=== PATIENT | male | born 1980 | race Caucasian/White ===

== ENCOUNTER 2022-12-23 14:52 | Outpatient (OUT) | payer OTHER, SELFPAY ==
--- NOTE | 2022-12-23 | XR_ITS ---
The [address] [address] Patient Name: RADHA WINSTON MRN: [id number] date: 1980 Sex: M Assigned Patient Location: Current Patient Location: Accession/Order Number: [id number] Exam Date: 12/23/2022 15:55 Report Date: 12/24/2022 07:37 At the request of: SAMUEL SHABAZZ Procedure: XR foot LT min 3V PROCEDURE: XR foot LT min 3V HISTORY: LEFT FOOT PAIN ; left foot wound COMPARISON: XR foot left 12/11/2021 FINDINGS: BONES:Prior surgical resection of distal end of first proximal phalanx, partial amputation of second and third toes, and resection of the distal half of the fourth and fifth metatarsals with bones of the phalanges remaining. Nondisplaced fracture across base of third metatarsal. SOFT TISSUES:No visible soft tissue swelling. EFFUSION:None visible. OTHER: Negative. XR/XR foot LT min 3V IMPRESSION: 1. Stable surgical changes. 2. Nonhealing versus incomplete osseous healing of base of third metatarsal fracture. Normal alignment is maintained. Electronically authenticated by: ADRI TOBIN Date: 12/24/2022 07:37
== END 2022-12-23 14:53 | disposition home or self-care (01) ==
LOC: WC 14:53
PROVIDERS: PCP Physician Assistant; Visit Provider Physician Assistant
DX: M79.672 Pain in left foot (principal); E11.621 Type 2 diabetes mellitus with foot ulcer; L97.421 Non-pressure chronic ulcer of left heel and midfoot limited to breakdown of skin; L97.521 Non-pressure chronic ulcer of other part of left foot limited to breakdown of skin
CPT/HCPCS: 11043; 11044; 73630; G0463

== ENCOUNTER 2022-12-23 16:47 | Outpatient (REF) | payer OTHER, SELFPAY | END 2022-12-23 16:48 | disposition home or self-care (01) | LOC: LAB 16:47 | PROVIDERS: PCP Physician Assistant; Visit Provider Physician Assistant | DX: S91.105A Unspecified open wound of left lesser toe(s) without damage to nail, initial encounter (principal) | CPT/HCPCS: 73630; 87070; 87101; 87116; 87150; 87186; 87205; 87206 ==

== ENCOUNTER 2022-12-25 14:52 | Outpatient (OUT) | payer OTHER, SELFPAY | END 2022-12-25 14:53 | disposition home or self-care (01) | LOC: WC 14:52 | PROVIDERS: PCP Physician Assistant; Visit Provider Podiatrist Foot & Ankle Surgery | DX: E11.621 Type 2 diabetes mellitus with foot ulcer (principal); L97.521 Non-pressure chronic ulcer of other part of left foot limited to breakdown of skin | CPT/HCPCS: G0463 ==

== ENCOUNTER 2023-01-03 14:15 | Outpatient (OUT) | payer OTHER, SELFPAY ==
--- NOTE | 2023-01-03 14:24 | ECG_ITS ---
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
--- NOTE | 2023-01-03 14:48 | XR_ITS ---
The [address] [address] Patient Name: RADHA WINSTON MRN: [id number] date: 1980 Sex: M Assigned Patient Location: [facility] Current Patient Location: [facility] Accession/Order Number: [id number] Exam Date: 01/03/2023 15:15 Report Date: 01/03/2023 15:34 At the request of: NIR SPENCER Procedure: XR chest 2V EXAM: XR chest 2V HISTORY: Preop. COMPARISON: 06/07/2018. TECHNIQUE: PA and lateral views of the chest performed. FINDINGS: The trachea is normal. The heart size is normal. The mediastinal silhouette is unremarkable. There may be calcified lymph nodes at the left hilum. The lung casas are clear. There is no pneumothorax. There is no acute osseous abnormality. There is slight dextroscoliosis of the thoracic spine. XR/XR chest 2V IMPRESSION: There is no acute cardiopulmonary process. Electronically authenticated by: NIR SERRANO Date: 01/03/2023 15:34
[2023-01-03 15:27] LABS: Basophils Absolute Auto 0.1 10^3/uL (0.0-0.1); Basophils Percent Auto 0.5 % (0.2-2.0); Eosinophils Absolute Auto 0.3 10^3/uL (0.0-0.7); Eosinophils Percent Auto 2.4 % (0.9-7.0); Hematocrit 30.9 % (42.0-54.0); Hemoglobin 10.4 g/dL (14.0-18.0); Immature Granulocytes Abs Auto 0.04 10^3/uL (0.00-0.03); Immature Granulocytes Pct Auto 0.3 % (0.0-0.5); Lymphocytes Absolute Auto 2.1 10^3/uL (1.2-3.8); Lymphocytes Percent Auto 17.7 % (20.5-60.0); Mean Corpuscular HGB Conc 33.7 g/dL (29.9-35.2); Mean Platelet Volume 9.1 fL (9.5-13.5); Monocytes Absolute Auto 0.7 10^3/uL (0.3-0.8); Monocytes Percent Auto 5.6 % (1.7-12.0); Neutrophils Absolute Auto 8.7 10^3/uL (1.4-6.5); Neutrophils Percent Auto 73.5 % (43.0-75.0); Platelet Count 218 10^3/uL (150-450); Red Blood Count 3.47 10^6/uL (4.70-6.10); Red Cell Distribution Width 12.5 % (11.0-15.0); White Blood Count 11.9 10^3/uL (4.0-11.0)
[2023-01-03 15:31] LABS: Anion Gap 14.1; BUN Creatinine Ratio 10.3; Calcium 8.9 mg/dL (8.5-10.1); Carbon Dioxide 27.1 mmol/L (21.0-32.0); Chloride 97 mmol/L (98-107); Estimated GFR (African America 10 (>=60); Estimated GFR (Non-African Ame 8 (>=60); Glucose 133 mg/dL (74-106); Potassium 4.2 mmol/L (3.5-5.1); Sodium 134 mmol/L (136-145)
[2023-01-03 15:42] LABS: INR 1.05; Prothrombin Time 11.1 sec (9.0-11.6)
[2023-01-04 09:24] LABS: Partial Thromboplastin Time 42.2 sec (22.3-36.2)
== END 2023-01-03 14:16 | disposition home or self-care (01) ==
LOC: PST 14:16
PROVIDERS: PCP Nurse Practitioner; Visit Provider Podiatrist Foot & Ankle Surgery
DX: Z01.810 Encounter for preprocedural cardiovascular examination (principal); Z01.812 Encounter for preprocedural laboratory examination; M86.672 Other chronic osteomyelitis, left ankle and foot; L97.526 Non-pressure chronic ulcer of other part of left foot with bone involvement without evidence of necrosis; E11.69 Type 2 diabetes mellitus with other specified complication
CPT/HCPCS: 36415; 71046; 80048; 85025; 85610; 85730; 93005

== ENCOUNTER 2023-01-13 06:22 | Day surgery (SDC) | payer OTHER, SELFPAY ==
[2023-01-03 14:55] VITALS: BP 153/86; PULSE 87; RESP 20; TEMP 36.4; O2SAT 97; BMI 32.3
[2023-01-13] VITALS (12 sets, daily range): BP systolic 71–131; BP diastolic 33–99; PULSE 66–90; RESP 10–24; TEMP 36.2–36.3; O2SAT 81–100; BMI 32.0
[2023-01-13] MEDS: 0.9 % SODIUM CHLORIDE 1,000 ML 50 ML IV (07:03)
[2023-01-13 07:44] LABS: Potassium 3.8 mmol/L (3.5-5.1)
[2023-01-13] MEDS: CLINDAMYCIN PHOSPHATE/D5W 900 MG/50 ML PIGGYBACK 100 MG IV (07:56)
[2023-01-13] MEDS: VANCOMYCIN HCL 1,000 MG VIAL 1000 MG TOPICAL (09:08)
[2023-01-13] MEDS: BUPIVACAINE HCL 0.5% PF 50 MG/10 ML VIAL 20 ML INJ (09:09)
--- NOTE | 2023-01-13 09:47 | XR_ITS ---
The [address] [address] Patient Name: RADHA WINSTON MRN: [id number] date: 1980 Sex: M Assigned Patient Location: [facility] Current Patient Location: [facility] Accession/Order Number: [id number] Exam Date: 01/13/2023 10:15 Report Date: 01/13/2023 15:49 At the request of: SUSANNAH AGUILAR Procedure: XR foot LT min 3V STUDY: XR foot LT min 3V, [id number] HISTORY: Postop x-ray PACU COMPARISON: None FINDINGS: Status post mid metatarsal foot amputation. The amputation margins are well defined. No dislocation or unintentional acute fracture. XR/XR foot LT min 3V IMPRESSION: Expected appearance status post mid metatarsal foot amputation. Electronically authenticated by: SHAHANA REED Date: 01/13/2023 15:49
--- NOTE | 2023-01-13 09:58 | PC.NURSE ---
ANETHESIA INSERTED IV IN RIGHT HAND BACK IN SURGERY
[2023-01-13 10:06] LABS: Glucometer 182 mg/dL (74-106)
--- NOTE | 2023-01-13 11:53 | PM.ORONB ---
Brief Operative Note Date of procedure: 01/13/23 Pre-op diagnosis: left foot osteomyelitis, diabetic foot ulceration and equinus Post-op diagnosis: same as pre-op Procedure: PROCEDURES PERFORMED: left transmetatarsal amputation, percutaneous tendo Achilles lengthening and application of short leg splint INTRAOPERATIVE FINDINGS: bone of the 5th metatarsal shaft was relatively soft compared to the other four metatarsals but was of normal color. all questionable tissue including ulcerations were excised. All remaining tissue appeared healthy. No purulence or evidence of acute infection. Ankle joint dorsiflexion was to neutral but not past prior to Achilles lengthening PROCEDURES IN DETAIL: Patient was identified in pre op and consent was reviewed. Correct side and site were identified and marked. Pre-op antibiotics were started. Patient was brought to OR suite and place on table in a supine position. General anesthesia was administered. Tourniquet applied. Operative extremity was prepped and draped in usual sterile fashion. Formal time-out was performed and the foot/ankle were exsanguinated and tourniquet inflated. A fishmouth incision was placed over the distal foot. Sharp dissection down to bone was performed. An elevator was used to raised full-thickness flap dorsally. Then a sagittal saw was used to perform osteotomies of each metatarsal taking care to preserve metatarsal parabola and avoid any bony prominences. Then with a comminution sharp and blunt dissection the distal forefoot was amputated and passed back table for specimen. Surgical site was irrigated with 3 L normal saline. 1 g of vancomycin powder was placed into the surgical site prior to closure. The incision was closed in one layer. The tourniquet was deflated with a prompt hyperemic response. Ankle joint dorsiflexion was to neutral but not past on the table therefore decision was made to perform tendo Achilles lengthening. A standard triple hemisection of the Achilles tendon was performed through three separate stab incisions. Ankle joint dorsiflexion was ten degrees past neutral. A dry sterile dressing consisting of Xeroform on the incisions followed by 4 x 4 gauze, ABDs, and Kerlix were applied. Multiple layers of cast padding were then applied to ensure all bony prominences were well-padded. A plaster posterior splint was then applied which was held in place by Placido wraps. Patient tolerated the procedure and anesthesia well and was transported to the recovery room with vital signs stable. 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 He most recently has had left recurrent and recalcitrant diabetic forefoot ulcers which have not healed with local wound care. He had a similar issue on his contralateral foot and has done very well with transmetatarsal amputation. At his last visit she inquired about doing similar amputation on his left. I reviewed all potential risks and benefits and patient wished to proceed with left transmetatarsal amputation and tendo Achilles lengthening
== END 2023-01-13 10:55 | disposition home or self-care (01) ==
PROVIDERS: Anesthesiology Pain Medicine; PCP Nurse Practitioner; Visit Provider Podiatrist Foot & Ankle Surgery
PROC: (CPT 1470; principal; 2023-01-13 07:30)
DX: E11.69 Type 2 diabetes mellitus with other specified complication (principal); M86.672 Other chronic osteomyelitis, left ankle and foot; E11.621 Type 2 diabetes mellitus with foot ulcer; L97.526 Non-pressure chronic ulcer of other part of left foot with bone involvement without evidence of necrosis; Z79.4 Long term (current) use of insulin; Z79.82 Long term (current) use of aspirin; M67.02 Short Achilles tendon (acquired), left ankle; E78.5 Hyperlipidemia, unspecified; E11.40 Type 2 diabetes mellitus with diabetic neuropathy, unspecified; E66.9 Obesity, unspecified; Z68.32 Body mass index [BMI] 32.0-32.9, adult; L97.521 Non-pressure chronic ulcer of other part of left foot limited to breakdown of skin; L97.421 Non-pressure chronic ulcer of left heel and midfoot limited to breakdown of skin; N18.5 Chronic kidney disease, stage 5; E11.22 Type 2 diabetes mellitus with diabetic chronic kidney disease; I12.9 Hypertensive chronic kidney disease with stage 1 through stage 4 chronic kidney disease, or unspecified chronic kidney disease; I12.0 Hypertensive chronic kidney disease with stage 5 chronic kidney disease or end stage renal disease; Z99.2 Dependence on renal dialysis
CPT/HCPCS: 27685; 28805; 36415; 73630; 82948; 84132; 88305; J2704; J3370

== ENCOUNTER 2023-01-16 13:53 | Outpatient (OUT) | payer OTHER, SELFPAY | END 2023-01-16 13:54 | disposition home or self-care (01) | LOC: WC 13:53 | PROVIDERS: PCP Nurse Practitioner; Visit Provider Physician Assistant | DX: T87.89 Other complications of amputation stump (principal) | CPT/HCPCS: 29445 ==

== ENCOUNTER 2023-01-23 15:01 | Outpatient (OUT) | payer OTHER, SELFPAY | END 2023-01-23 15:02 | disposition home or self-care (01) | LOC: WC 15:01 | PROVIDERS: PCP Nurse Practitioner; Visit Provider Podiatrist Foot & Ankle Surgery | DX: T87.89 Other complications of amputation stump (principal) | CPT/HCPCS: G0463 ==

== ENCOUNTER 2023-01-23 16:11 | Outpatient (OUT) | payer OTHER, SELFPAY ==
[2023-01-23 16:43] LABS: Basophils Absolute Auto 0.1 10^3/uL (0.0-0.1); Basophils Percent Auto 0.6 % (0.2-2.0); Eosinophils Absolute Auto 0.3 10^3/uL (0.0-0.7); Eosinophils Percent Auto 2.5 % (0.9-7.0); Hematocrit 27.2 % (42.0-54.0); Immature Granulocytes Abs Auto 0.06 10^3/uL (0.00-0.03); Immature Granulocytes Pct Auto 0.5 % (0.0-0.5); Lymphocytes Absolute Auto 2.5 10^3/uL (1.2-3.8); Lymphocytes Percent Auto 21.7 % (20.5-60.0); Mean Corpuscular HGB Conc 33.1 g/dL (29.9-35.2); Mean Corpuscular Hemoglobin 30.5 pg (25.9-34.0); Mean Corpuscular Volume 92.2 fL (80.0-94.0); Monocytes Absolute Auto 0.7 10^3/uL (0.3-0.8); Neutrophils Absolute Auto 7.8 10^3/uL (1.4-6.5); Neutrophils Percent Auto 68.7 % (43.0-75.0); Platelet Count 245 10^3/uL (150-450); Red Blood Count 2.95 10^6/uL (4.70-6.10); Red Cell Distribution Width 12.4 % (11.0-15.0); White Blood Count 11.4 10^3/uL (4.0-11.0)
[2023-01-23 17:28] LABS: Anion Gap 14.2; BUN Creatinine Ratio 9.5; Calcium 9.1 mg/dL (8.5-10.1); Carbon Dioxide 24.8 mmol/L (21.0-32.0); Chloride 100 mmol/L (98-107); Estimated GFR (African America 10 (>=60); Estimated GFR (Non-African Ame 8 (>=60); Glucose 144 mg/dL (74-106); Sodium 135 mmol/L (136-145)
== END 2023-01-23 16:12 | disposition home or self-care (01) ==
LOC: LAB 16:13
PROVIDERS: PCP Nurse Practitioner; Visit Provider Podiatrist Foot & Ankle Surgery
DX: T81.30XA Disruption of wound, unspecified, initial encounter (principal); T87.89 Other complications of amputation stump
CPT/HCPCS: 36415; 80048; 85025

== ENCOUNTER 2023-01-28 09:55 | Outpatient (OUT) | payer OTHER, SELFPAY | END 2023-01-28 09:56 | disposition home or self-care (01) | LOC: WC 09:55 | PROVIDERS: PCP Nurse Practitioner; Visit Provider Podiatrist Foot & Ankle Surgery | DX: T87.89 Other complications of amputation stump (principal); M86.472 Chronic osteomyelitis with draining sinus, left ankle and foot | CPT/HCPCS: 11042 ==

== ENCOUNTER 2023-02-04 16:01 | Outpatient (OUT) | payer OTHER, SELFPAY | END 2023-02-04 16:02 | disposition home or self-care (01) | LOC: WC 16:01 | PROVIDERS: PCP Nurse Practitioner; Visit Provider Podiatrist Foot & Ankle Surgery | DX: T87.89 Other complications of amputation stump (principal) | CPT/HCPCS: 11042; 11045 ==

== ENCOUNTER 2023-02-09 12:40 | Emergency (ER) | payer OTHER, SELFPAY ==
[2023-02-09 12:44] VITALS: BP 160/90; PULSE 107; RESP 16; TEMP 36.7; O2SAT 99; BMI 30.1
[2023-02-09 14:15] LABS: Glucometer 107 mg/dL (74-106)
--- NOTE | 2023-02-09 14:41 | ED.GENADUL1 ---
HPI - General Adult General Chief complaint: Extremity Injury, Lower Stated complaint: LT FOOT PAIN Time Seen by Provider: 02/09/23 12:44 Source: patient and family Mode of arrival: Wheelchair Limitations: no limitations History of Present Illness HPI narrative: the patient developed a foul odor from his surgically repaired left foot. He has tried not to put weight on the foot but sometimes stands on it to urinate/use the commode. He denied any fall or injury. No systemic symptoms such as fever or vomiting Related Data Home Medications Medication Instructions Recorded Confirmed atorvastatin 40 mg tablet 40 mg PO DAILY 01/03/23 02/10/23 amlodipine 10 mg tablet 10 mg PO DAILY 01/09/23 02/10/23 calcium carbonate 200 mg calcium 200 mg PO TID 01/09/23 02/10/23 (500 mg) chewable tablet (Tums) carvedilol 12.5 mg tablet 12.5 mg PO BID 01/09/23 02/10/23 insulin glargine 100 unit/mL (3 24 unit subcut BEDTIME 01/09/23 02/10/23 mL) subcutaneous pen (Lantus Solostar U-100 Insulin) losartan 50 mg tablet 50 mg PO BEDTIME 01/09/23 02/10/23 calcitriol 0.25 mcg capsule 0.25 mcg PO Q12H 01/13/23 02/10/23 aspirin 81 mg tablet,delayed 81 mg PO DAILY 02/10/23 02/10/23 release furosemide 40 mg tablet 40 mg PO BID 02/10/23 02/10/23 insulin lispro 100 unit/mL 8 unit subcut AC 02/10/23 02/10/23 subcutaneous pen sevelamer carbonate 800 mg tablet 1,600 mg PO TID 02/10/23 02/10/23 (Renvela) vitamin B complex and vitamin C 1 cap PO DAILY 02/10/23 02/10/23 no.20-folic acid 1 mg capsule Allergies Allergy/AdvReac Type Severity Reaction Status Date / Time trimethoprim [From Bactrim] Allergy Unknown Diarrhea Verified 01/13/23 06:44 amoxicillin Allergy Hives Verified 01/02/23 10:09 duloxetine Allergy Panic Verified 01/02/23 10:09 attack sulfamethoxazole Allergy Diarrhea Verified 01/02/23 10:09 [From Bactrim] [facility] Medical History (Updated 02/14/23 @ 00:00 by ) Ankle pain ?M25.579 - Pain in unspecified ankle and joints of unspecified foot (ICD-10) Anxiety ?F41.9 - Anxiety disorder, unspecified (ICD-10) Asthma ?J45.909 - Unspecified asthma, uncomplicated (ICD-10) Chronic osteomyelitis involving left ankle and foot ?M86.672 - Other chronic osteomyelitis, left ankle and foot (ICD-10) Depression ?F32.A - Depression, unspecified (ICD-10) Diabetes ?E11.9 - Type 2 diabetes mellitus without complications (ICD-10) Diabetic foot ulcer ?E11.621 - Type 2 diabetes mellitus with foot ulcer (ICD-10) ?L97.509 - Non-pressure chronic ulcer of other part of unspecified foot with unspecified severity (ICD-10) Encounter for post surgical wound check ?Z48.89 - Encounter for other specified surgical aftercare (ICD-10) End-stage renal disease (ESRD) ?N18.6 - End stage renal disease (ICD-10) Gangrene ?I96 - Gangrene, not elsewhere classified (ICD-10) Headache ?R51.9 - Headache, unspecified (ICD-10) High cholesterol ?E78.00 - Pure hypercholesterolemia, unspecified (ICD-10) Hypertension ?I10 - Essential (primary) hypertension (ICD-10) Infection of great toe ?L08.9 - Local infection of the skin and subcutaneous tissue, unspecified (ICD-10) Migraine ?G43.909 - Migraine, unspecified, not intractable, without status migrainosus (ICD-10) 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 - Moderate intellectual disabilities (ICD-10) Osteomyelitis ?M86.9 - Osteomyelitis, unspecified (ICD-10) Panic attack ?F41.0 - Panic disorder [episodic paroxysmal anxiety] (ICD-10) Peritoneal dialysis catheter in place ?Z99.2 - Dependence on renal dialysis (ICD-10) Peritoneal dialysis status ?Z99.2 - Dependence on renal dialysis (ICD-10) Seasonal allergies ?J30.2 - Other seasonal allergic rhinitis (ICD-10) Stage 3 chronic kidney disease ?N18.30 - Chronic kidney disease, stage 3 unspecified (ICD-10) Type 2 diabetes mellitus with diabetic polyneuropathy ?E11.42 - Type 2 diabetes mellitus with diabetic polyneuropathy (ICD-10) Type 2 diabetes mellitus with hyperglycemia ?E11.65 - Type 2 diabetes mellitus with hyperglycemia (ICD-10) Wound infection (01/01/15) ?T14.8XXA - Other injury of unspecified body region, initial encounter (ICD-10) ?L08.9 - Local infection of the skin and subcutaneous tissue, unspecified (ICD-10) Surgical History (Updated 01/02/23 @ 10:08 by Naila Maharaj NP) H/O foot surgery (10/09/20) ?Z98.890 - Other specified postprocedural states (ICD-10) H/O foot surgery (11/10/18) ?Z98.890 - Other specified postprocedural states (ICD-10) H/O foot surgery (07/16/18) ?Z98.890 - Other specified postprocedural states (ICD-10) History of hernia repair (~1982) ?Z98.890 - Other specified postprocedural states (ICD-10) ?Z87.19 - Personal history of other diseases of the digestive system (ICD-10) S/P foot surgery, left (02/10/18) ?Z98.890 - Other specified postprocedural states (ICD-10) Status post left foot surgery (~2015) ?Z98.890 - Other specified postprocedural states (ICD-10) Status post right foot surgery (05/04/18) ?Z98.890 - Other specified postprocedural states (ICD-10) Status post right foot surgery (05/01/18) ?Z98.890 - Other specified postprocedural states (ICD-10) Family History (Updated 02/10/23 @ 14:28 by Caty Bazan) Father Family history of cancer Family history of myocardial infarction CAD (coronary artery disease) Family history of diabetes mellitus Grandfather Family history of myocardial infarction Social History (Updated 02/10/23 @ 14:32 by Caty Bazan) Within the past year, how often did you have a drink containing alcohol: never Within the past year, how many standard drinks containing alcohol did you have on a typical day: 1 or 2 Within the past year, how often did you have six or more drinks on one occasion: never Total score: 0 Score interpretation: A score less than 4 is consistent with normal alcohol consumption. Smoking status: Current every day smoker Nicotine containing products detail: 1/2 pack daily Non-prescribed substance use: denies use Previous occupational history: disability Known occupational exposures/hazards: No Highest level of school completed/degree received: high school graduate Are you now , , , , never or living with a partner: never In a typical week, how many times do you talk on the telephone with family, friends, or neighbors: twice per week How often do you get together with friends or relatives: never How often do you attend presybeterian or religion services: never Do you belong to any clubs or organizations such as presybeterian groups unions, [employer] or athletic groups, or school groups: no Total score: 0 Score interpretation: A score of less than or equal to 1 indicates the most socially isolated. Little interest or pleasure in doing things: not at all Feeling down, depressed, or hopeless: not at all Feel stressed/tense/nervous/anxious/difficulty sleeping: not at all Do you think of yourself as: decline to answer Gender Identity: male Exam Narrative Exam Narrative: Nurses notes and vital signs reviewed and patient is not hypoxic. afebrile General: Well-appearing and in no apparent distress. Skin: Warm, dry, no pallor noted. Ears, Nose, Mouth, and Throat: Oral mucosa is moist Cardiovascular: Regular Rate and Rhythm without murmur, gallop or rub. Respiratory: No accessory muscle use or respiratory distress. Lungs are clear to auscultation, no wheezing, rales or rhonchi Musculoskeletal: I removed the splint and dressing from the patient's foot - there is dried blood and small amount of oozing from one of the two flap repairs. No purulent discharge, erythema or sign of active infection noted. the bandages were heavily saturated with blood and the smell is that of blood. he has normal ROM at the left ankle and intact sensation and normal skin color throughout the left foot. Neurological: A&O x4. No cranial nerve dysfunction observed. No truncal ataxia. Moves all extremities. Sensation intact. Psychiatric: Cooperative and interactive. Normal mood and affect. Constitutional Vital Signs, click to edit/add: Last Vital Signs Temp 98.1 F 02/09/23 12:44 Pulse 98 H 02/09/23 14:44 Resp 18 02/09/23 14:44 BP 130/86 02/09/23 14:44 Pulse Ox 99 02/09/23 14:44 O2 Del Method Room Air 02/09/23 12:44 Course Vital Signs Vital signs: Vital Signs Temperature 98.1 F 02/09/23 12:44 Pulse Rate 107 H 02/09/23 12:44 Respiratory Rate 16 02/09/23 12:44 Blood Pressure 160/90 H 02/09/23 12:44 Pulse Oximetry 99 02/09/23 12:44 Oxygen Delivery Method Room Air 02/09/23 12:44 Temperature 98.1 F 02/09/23 12:44 Pulse Rate 98 H 02/09/23 14:44 Respiratory Rate 18 02/09/23 14:44 Blood Pressure 130/86 02/09/23 14:44 Pulse Oximetry 99 02/09/23 14:44 Oxygen Delivery Method Room Air 02/09/23 12:44 Medical Decision Making MDM Narrative Medical decision making narrative: with the patient's permission, I texted pictures of the foot to Dr. Patel for review without any patient identifiers. I called him and we spoke by phone. He told me that the images that I sent him appears to show changes that are typical for this type of surgery and healing. He told me that the patient may require some revision and he asked the patient be seen in the office tomorrow. He asked that I redress the wound and reapply new splint and reminded patient to be completely nonweightbearing on that foot. The emergency Department nurse give the patient a urinal to use at home so he does not have to be standing while urinating. She encouraged him to be careful when transferring to the commode to have a bowel movement. I dressed the left foot and applied a posterior OCL splint and secure in place with myranda bandage. Lab Data Labs: Lab Results 02/09/23 Range/Units 14:15 POC Glucose 107 H (74-106) mg/dL Discharge Plan Discharge Chief Complaint: Extremity Injury, Lower Clinical Impression: Encounter for post surgical wound check Patient Disposition: Home, Self-Care Time of Disposition Decision: 14:41 Prescriptions / Home Meds: No Action atorvastatin 40 mg tablet 40 mg PO DAILY calcitriol 0.25 mcg capsule 0.25 mcg PO Q12H furosemide 40 mg tablet 40 mg PO BID insulin lispro 100 unit/mL insulin pen 8 unit SUBCUT AC aspirin 81 mg tablet,delayed release (DR/EC) 81 mg PO DAILY sevelamer carbonate [Renvela] 800 mg tablet 1,600 mg PO TID Rx Instructions: must administer with a meal/food B complex with C 20-folic acid 1 mg capsule 1 cap PO DAILY losartan 50 mg tablet 50 mg PO BEDTIME carvedilol 12.5 mg tablet 12.5 mg PO BID Rx Instructions: must administer with a meal/food amlodipine 10 mg tablet 10 mg PO DAILY calcium carbonate [Tums] 200 mg calcium (500 mg) tablet,chewable 200 mg PO TID insulin glargine [Lantus Solostar U-100 Insulin] 100 unit/mL (3 mL) insulin pen 24 unit subcut BEDTIME Instructions: Wound Healing and Your Diet (ED) Stand Alone Forms: Portal Instructions Referrals: Julio C Patel DPM [Physician] - 02/10/23 9:00 am Discharge Date/Time: 02/09/23 15:00
[2023-02-09 14:44] VITALS: BP 130/86; PULSE 98; RESP 18; O2SAT 99
== END 2023-02-09 15:00 | disposition home or self-care (01) ==
PROVIDERS: Emergency Provider Emergency Medicine; PCP Nurse Practitioner
DX: Z48.01 Encounter for change or removal of surgical wound dressing (principal); F41.9 Anxiety disorder, unspecified; J45.909 Unspecified asthma, uncomplicated; F32.A Depression, unspecified; E11.9 Type 2 diabetes mellitus without complications; E78.00 Pure hypercholesterolemia, unspecified; I10 Essential (primary) hypertension; F71 Moderate intellectual disabilities; Z98.890 Other specified postprocedural states; Z87.891 Personal history of nicotine dependence; Z99.2 Dependence on renal dialysis; Z79.899 Other long term (current) drug therapy; Z79.82 Long term (current) use of aspirin; Z79.4 Long term (current) use of insulin
CPT/HCPCS: 36415; 36416; 82948; 99282

== ENCOUNTER 2023-02-10 12:10 | Observation (INO) | payer OTHER, SELFPAY ==
[2023-02-10 12:22] VITALS: BP 178/105; PULSE 106; RESP 18; TEMP 36.6; O2SAT 99; BMI 30.1
--- NOTE | 2023-02-10 12:43 | ECG_ITS ---
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
--- NOTE | 2023-02-10 12:47 | ED_ITS ---
HPI - General Adult General Chief complaint: Wound/Laceration Stated complaint: WOUND VAC ON L FOOT Time Seen by Provider: 02/10/23 12:43 Source: patient Mode of arrival: Wheelchair Limitations: no limitations History of Present Illness HPI narrative: Patient is a Pleasant 42-year-old male who is presenting to the Emergency Room with chief complaint of chronic left wound there was seen and evaluated in the office today by Maryse CHAPMAN. Patient was sent to the Emergency Room to have IV established, start basic lab work, and patient will be admitted to the hospital to medical physician Dr. Vidal, with Dr. Patel in consultation. Patient does do peritoneal dialysis. Patient did dialysis this morning. Patient will be allowed to do his own peritoneal dialysis on the inpatient for, this was okayed by Dr. Vidal. Patient states that he feels well. Patient has no fever, chills, abdominal pain, nausea or vomiting. Patient flat was evaluated in the office by Maryse CHAPMAN and Podiatry office. Patient Patient had bleedding that was noted in the office, there was a wound dressing placed to left foot. Patient arrived with a wound dressingin the podiatry office today, it was not taken down since it was just evaluated by podiatry this morning. . All systems are negative except as noted/marked. All systems reviewed and otherwise negative. . Nurses note and vital signs reviewed and patient is not hypoxic. General: The patient appears well and in no apparent distress. Patient is resting comfortably on cart. Patient is not toxic, lethargic, or listless Skin: Warm, dry, no pallor noted. There is no rash noted. No petechiae, purpura. Head: Normocephalic, atraumatic Eye: Normal conjunctiva, no drainage, EOMI. PERRL Ears, Nose, Mouth, and Throat: oral mucosa is moist. Nares patent. Mouth without vesicles. Cardiovascular: Regular Rate and Rhythm, no murmur, gallop, rub Respiratory: Patient is in no distress, no accessory muscle use, lungs are clear to auscultation, no wheezing, rales or rhonchi Back: non-tender, no CVA tenderness bilaterally to percussion. No CT LS midline pain GI: soft, no tenderness to palpation, no masses appreciated. No rebound, guarding, or rigidity noted. No flank pain bilateral, No distention Musculoskeletal: Patient has full range of motion of all of the extremities, no motor, sensory, or focal neurological deficits. Patient has a large dressing to patient's left foot and distal 3rd left lower extremity that was placed this morning the podiatry office. Neurological: A&O x3, normal speech Psychiatric: Cooperative Related Data Home Medications Medication Instructions Recorded Confirmed atorvastatin 40 mg tablet 40 mg PO DAILY 01/03/23 01/03/23 amlodipine 10 mg tablet 10 mg PO DAILY 01/09/23 01/09/23 aspirin 81 mg capsule 81 mg PO DAILY 01/09/23 01/09/23 calcium carbonate 200 mg calcium 200 mg PO TID 01/09/23 01/09/23 (500 mg) chewable tablet (Tums) carvedilol 12.5 mg tablet 12.5 mg PO BID 01/09/23 01/09/23 ferrous sulfate 325 mg (65 mg 325 mg PO DAILY 01/09/23 01/09/23 iron) tablet (iron) insulin glargine 100 unit/mL (3 24 unit subcut DAILY 01/09/23 01/09/23 mL) subcutaneous pen (Lantus Solostar U-100 Insulin) losartan 50 mg tablet 50 mg PO DAILY 01/09/23 01/09/23 sodium bicarbonate 650 mg tablet 650 mg PO TID 01/09/23 01/09/23 calcitriol 0.25 mcg capsule mcg 01/13/23 Previous Rx's Medication Instructions Recorded oxycodone-acetaminophen 5 mg-325 1 tab PO Q6H PRN pain 7 days #28 01/13/23 mg tablet (Percocet) tabs Allergies Allergy/AdvReac Type Severity Reaction Status Date / Time trimethoprim [From Bactrim] Allergy Unknown Diarrhea Verified 01/13/23 06:44 amoxicillin Allergy Hives Verified 01/02/23 10:09 duloxetine Allergy Panic Verified 01/02/23 10:09 attack sulfamethoxazole Allergy Diarrhea Verified 01/02/23 10:09 [From Bactrim] [facility] Medical History (Updated 02/10/23 @ 13:52 by Ramos Meyer MD) Ankle pain ?M25.579 - Pain in unspecified ankle and joints of unspecified foot (ICD-10) Anxiety ?F41.9 - Anxiety disorder, unspecified (ICD-10) Asthma ?J45.909 - Unspecified asthma, uncomplicated (ICD-10) Depression ?F32.A - Depression, unspecified (ICD-10) Diabetes ?E11.9 - Type 2 diabetes mellitus without complications (ICD-10) Gangrene ?I96 - Gangrene, not elsewhere classified (ICD-10) Headache ?R51.9 - Headache, unspecified (ICD-10) High cholesterol ?E78.00 - Pure hypercholesterolemia, unspecified (ICD-10) Hypertension ?I10 - Essential (primary) hypertension (ICD-10) Infection of great toe ?L08.9 - Local infection of the skin and subcutaneous tissue, unspecified (ICD-10) Migraine ?G43.909 - Migraine, unspecified, not intractable, without status migrainosus (ICD-10) 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 - Moderate intellectual disabilities (ICD-10) Osteomyelitis ?M86.9 - Osteomyelitis, unspecified (ICD-10) Panic attack ?F41.0 - Panic disorder [episodic paroxysmal anxiety] (ICD-10) Peritoneal dialysis catheter in place ?Z99.2 - Dependence on renal dialysis (ICD-10) Seasonal allergies ?J30.2 - Other seasonal allergic rhinitis (ICD-10) Wound infection (01/01/15) ?T14.8XXA - Other injury of unspecified body region, initial encounter (ICD- 10) ?L08.9 - Local infection of the skin and subcutaneous tissue, unspecified (ICD-10) Surgical History (Updated 01/02/23 @ 10:08 by Naila Maharaj NP) H/O foot surgery (10/09/20) ?Z98.890 - Other specified postprocedural states (ICD-10) H/O foot surgery (11/10/18) ?Z98.890 - Other specified postprocedural states (ICD-10) H/O foot surgery (07/16/18) ?Z98.890 - Other specified postprocedural states (ICD-10) History of hernia repair (~1982) ?Z98.890 - Other specified postprocedural states (ICD-10) ?Z87.19 - Personal history of other diseases of the digestive system (ICD-10) S/P foot surgery, left (02/10/18) ?Z98.890 - Other specified postprocedural states (ICD-10) Status post left foot surgery (~2015) ?Z98.890 - Other specified postprocedural states (ICD-10) Status post right foot surgery (05/04/18) ?Z98.890 - Other specified postprocedural states (ICD-10) Status post right foot surgery (05/01/18) ?Z98.890 - Other specified postprocedural states (ICD-10) Family History (Updated 01/02/23 @ 10:17 by Naila Maharaj NP) Other CAD (coronary artery disease) Family history of cancer Family history of diabetes mellitus Family history of hypertension Family history of myocardial infarction Social History Smoking status: Never smoker Exam Constitutional Vital Signs, click to edit/add: Last Vital Signs Temp 97.8 F 02/10/23 12:22 Pulse 106 H 02/10/23 12:22 Resp 18 02/10/23 12:22 BP 178/105 H 02/10/23 12:22 Pulse Ox 99 02/10/23 12:22 O2 Del Method Room Air 02/10/23 12:22 Course Vital Signs Vital signs: Vital Signs Temperature 97.8 F 02/10/23 12:22 Pulse Rate 106 H 02/10/23 12:22 Respiratory Rate 18 02/10/23 12:22 Blood Pressure 178/105 H 02/10/23 12:22 Pulse Oximetry 99 02/10/23 12:22 Oxygen Delivery Method Room Air 02/10/23 12:22 Temperature 97.8 F 02/10/23 12:22 Pulse Rate 106 H 02/10/23 12:22 Respiratory Rate 18 02/10/23 12:22 Blood Pressure 178/105 H 02/10/23 12:22 Pulse Oximetry 99 02/10/23 12:22 Oxygen Delivery Method Room Air 02/10/23 12:22 Medical Decision Making MDM Narrative Medical decision making narrative: Patient will be admitted by Dr. Vidal. Dr. Patel will be in consultation. We're being told the patient will have a wound VAC placed, they will try the wound VAC for the next couple days if no improvement patient will be going to surgery afternoon if needed. No antibiotics were indicated at this time. Patient has no pain, no nausea. Patient was cleared to injuring for lunch today. Preop testing and basic lab work was done, patient will be admitted to medical floor. Patient was extremities like, no other medications needed a recommended this time from podiatry. Lab Data Lab results reviewed: Yes I reviewed the patient's lab results Labs: Lab Results 02/10/23 02/10/23 Range/Units 12:30 12:57 WBC 10.9 (4.0-11.0) 10^3/uL RBC 2.98 L (4.70-6.10) 10^6/uL Hgb 9.4 L (14.0-18.0) g/dL Hct 27.5 L (42.0-54.0) % MCV 92.3 (80.0-94.0) fL MCH 31.5 (25.9-34.0) pg MCHC 34.2 (29.9-35.2) g/dL RDW 12.9 (11.0-15.0) % Plt Count 219 (150-450) 10^3/uL MPV 9.3 L (9.5-13.5) fL Neut % (Auto) 73.5 (43.0-75.0) % Lymph % (Auto) 17.0 L (20.5-60.0) % [place] % (Auto) 6.1 (1.7-12.0) % Eos % (Auto) 2.4 (0.9-7.0) % Baso % (Auto) 0.6 (0.2-2.0) % Neut # (Auto) 8.0 H (1.4-6.5) 10^3/uL Lymph # (Auto) 1.9 (1.2-3.8) 10^3/uL [place] # (Auto) 0.7 (0.3-0.8) 10^3/uL Eos # (Auto) 0.3 (0.0-0.7) 10^3/uL Baso # (Auto) 0.1 (0.0-0.1) 10^3/uL Abs Immat Gran (auto) 0.04 H (0.00-0.03) 10^3/uL Imm/Tot Granulo (auto) 0.4 (0.0-0.5) % PT 10.8 (9.0-11.6) sec INR 1.02 APTT 38.6 H (22.3-36.2) sec VBG pH 7.356 (7.330-7.430) VBG pCO2 44.8 (40.0-52.0) mmHg Sodium 137 (136-145) mmol/L Potassium 4.1 (3.5-5.1) mmol/L Chloride 103 (98-107) mmol/L Carbon Dioxide 26.9 (21.0-32.0) mmol/L Anion Gap 11.2 BUN 66.0 H (7.0-18.0) mg/dL Creatinine 7.69 H* (0.70-1.30) mg/dL Est GFR ( Amer) 10 L (>=60) Est GFR (Non-Af Amer) 8 L (>=60) BUN/Creatinine Ratio 8.6 Glucose 102 (74-106) mg/dL Lactate 0.9 (0.4-2.0) mmol/L Calcium 8.6 (8.5-10.1) mg/dL Magnesium 2.1 (1.8-2.4) mg/dL Total Bilirubin 0.2 (0.2-1.0) mg/dL AST 11 L (15-37) U/L ALT 20 (16-63) U/L Alkaline Phosphatase 90 (46-116) U/L Total Protein 7.3 (6.4-8.2) g/dL Albumin 3.0 L (3.4-5.0) g/dL Globulin 4.3 g/dL Albumin/Globulin Ratio 0.7 POC Glucose 124 H (74-106) mg/dL Patient's creatinine is 7.9, he did do peritoneal dialysis this morning. ECG Data Attestation: I personally reviewed and interpreted this ECG as follows: (EKG interpretation. Normal sinus rhythm at 96 beats a minute. Normal axis deviation. No acute ST elevation, no acute ectopy. QTC of 430, T waves noted throughout.) Discharge Plan Discharge Chief Complaint: Wound/Laceration Clinical Impression: Encounter for post surgical wound check, End-stage renal disease (ESRD) Patient Disposition: Admitted As Inpatient Time of Disposition Decision: 13:15 Condition: Fair
[2023-02-10 12:56] LABS: PCO2 VBG 44.8 mmHg (40.0-52.0); pH VBG 7.356 (7.330-7.430)
[2023-02-10 12:58] LABS: Glucometer 124 mg/dL (74-106)
[2023-02-10 12:59] LABS: Basophils Absolute Auto 0.1 10^3/uL (0.0-0.1); Basophils Percent Auto 0.6 % (0.2-2.0); Eosinophils Absolute Auto 0.3 10^3/uL (0.0-0.7); Eosinophils Percent Auto 2.4 % (0.9-7.0); Hematocrit 27.5 % (42.0-54.0); Hemoglobin 9.4 g/dL (14.0-18.0); Immature Granulocytes Abs Auto 0.04 10^3/uL (0.00-0.03); Immature Granulocytes Pct Auto 0.4 % (0.0-0.5); Lymphocytes Absolute Auto 1.9 10^3/uL (1.2-3.8); Mean Corpuscular HGB Conc 34.2 g/dL (29.9-35.2); Mean Corpuscular Hemoglobin 31.5 pg (25.9-34.0); Mean Corpuscular Volume 92.3 fL (80.0-94.0); Mean Platelet Volume 9.3 fL (9.5-13.5); Monocytes Absolute Auto 0.7 10^3/uL (0.3-0.8); Monocytes Percent Auto 6.1 % (1.7-12.0); Neutrophils Percent Auto 73.5 % (43.0-75.0); Platelet Count 219 10^3/uL (150-450); Red Blood Count 2.98 10^6/uL (4.70-6.10); Red Cell Distribution Width 12.9 % (11.0-15.0); White Blood Count 10.9 10^3/uL (4.0-11.0)
[2023-02-10 13:13] LABS: Alanine Aminotransferase 20 U/L (16-63); Albumin Globulin Ratio 0.7; Alkaline Phosphatase 90 U/L (46-116); Anion Gap 11.2; Aspartate Amino Transferase 11 U/L (15-37); BUN Creatinine Ratio 8.6; Bilirubin Total 0.2 mg/dL (0.2-1.0); Calcium 8.6 mg/dL (8.5-10.1); Carbon Dioxide 26.9 mmol/L (21.0-32.0); Chloride 103 mmol/L (98-107); Estimated GFR (African America 10 (>=60); Estimated GFR (Non-African Ame 8 (>=60); Globulin 4.3 g/dL; Glucose 102 mg/dL (74-106); Magnesium 2.1 mg/dL (1.8-2.4); Potassium 4.1 mmol/L (3.5-5.1); Sodium 137 mmol/L (136-145); Total Protein 7.3 g/dL (6.4-8.2)
[2023-02-10 13:15] LABS: Lactate/Lactic Acid 0.9 mmol/L (0.4-2.0)
[2023-02-10 13:20] LABS: INR 1.02; Partial Thromboplastin Time 38.6 sec (22.3-36.2); Prothrombin Time 10.8 sec (9.0-11.6)
--- NOTE | 2023-02-10 13:26 | XR_ITS ---
The [address] [address] Patient Name: RADHA WINSTON MRN: [id number] date: 1980 Sex: M Assigned Patient Location: ER Current Patient Location: ER Accession/Order Number: [id number] Exam Date: 02/10/2023 13:20 Report Date: 02/10/2023 13:35 At the request of: AUDRA FOSS Procedure: XR chest 1V EXAMINATION: XR chest 1V 02/10/2023 10:34 AM PDT HISTORY: pre op TECHNIQUE: Single frontal view of the chest acquired. COMPARISONS: Chest x-ray 01/03/2023. FINDINGS: Lines/tubes/other: None. Heart and mediastinum: The heart and the mediastinum are within normal limits for technique. Bones: No acute osseous abnormality. Lungs: The lungs are clear. There is no evidence of pneumonia or pulmonary edema. Pleura: There is no significant pleural effusion or pneumothorax. Other: None. XR/XR chest 1V IMPRESSION: No significant cardiopulmonary abnormality. Electronically authenticated by: SHAHANA REED Date: 02/10/2023 13:35
[2023-02-10] MEDS: LACTATED RINGER'S SOLUTION 1,000 ML 999 ML IV (13:33)
[2023-02-10 14:46] VITALS: BP 162/82; PULSE 89; RESP 18; TEMP 36.8; O2SAT 99; BMI 31.5
[2023-02-10 19:49] VITALS: BP 148/84; PULSE 86; RESP 18; TEMP 36.6; O2SAT 96
[2023-02-10] MEDS: CARVEDILOL 12.5 MG TABLET PO (20:33)
[2023-02-10] MEDS: FUROSEMIDE 40 MG TABLET PO (20:33)
[2023-02-10 20:37] LABS: Glucometer 210 mg/dL (74-106)
[2023-02-10] MEDS: LOSARTAN POTASSIUM 50 MG TABLET PO (21:06)
[2023-02-10] MEDS: INSULIN DETEMIR 300 UNIT/3 ML INSULN.PEN 24 UNIT SUBQ (21:06)
[2023-02-10] MEDS: INSULIN ASPART 300 UNIT/3 ML PEN SUBQ (21:09)
[2023-02-11 05:19] LABS: Basophils Absolute Auto 0.1 10^3/uL (0.0-0.1); Basophils Percent Auto 0.7 % (0.2-2.0); Eosinophils Absolute Auto 0.3 10^3/uL (0.0-0.7); Eosinophils Percent Auto 3.4 % (0.9-7.0); Hematocrit 24.9 % (42.0-54.0); Hemoglobin 8.2 g/dL (14.0-18.0); Immature Granulocytes Abs Auto 0.02 10^3/uL (0.00-0.03); Immature Granulocytes Pct Auto 0.2 % (0.0-0.5); Lymphocytes Absolute Auto 2.8 10^3/uL (1.2-3.8); Lymphocytes Percent Auto 32.5 % (20.5-60.0); Mean Corpuscular HGB Conc 32.9 g/dL (29.9-35.2); Mean Corpuscular Hemoglobin 30.8 pg (25.9-34.0); Mean Corpuscular Volume 93.6 fL (80.0-94.0); Mean Platelet Volume 9.5 fL (9.5-13.5); Monocytes Absolute Auto 0.6 10^3/uL (0.3-0.8); Monocytes Percent Auto 7.1 % (1.7-12.0); Neutrophils Absolute Auto 4.8 10^3/uL (1.4-6.5); Neutrophils Percent Auto 56.1 % (43.0-75.0); Platelet Count 192 10^3/uL (150-450); Red Blood Count 2.66 10^6/uL (4.70-6.10); Red Cell Distribution Width 12.8 % (11.0-15.0); White Blood Count 8.5 10^3/uL (4.0-11.0)
[2023-02-11 05:26] VITALS: BP 96/59; PULSE 73; RESP 18; TEMP 36.8; O2SAT 90
[2023-02-11 05:36] LABS: BUN Creatinine Ratio 8.3; Calcium 8.1 mg/dL (8.5-10.1); Carbon Dioxide 26.8 mmol/L (21.0-32.0); Chloride 103 mmol/L (98-107); Estimated GFR (African America 9 (>=60); Estimated GFR (Non-African Ame 7 (>=60); Glucose 131 mg/dL (74-106); Potassium 3.8 mmol/L (3.5-5.1); Sodium 137 mmol/L (136-145)
[2023-02-11 08:39] VITALS: BP 149/88
[2023-02-11] MEDS: FUROSEMIDE 40 MG TABLET PO ×2 (08:39→20:06)
[2023-02-11] MEDS: ASPIRIN 81 MG TABLET.DR PO (08:39)
[2023-02-11] MEDS: SEVELAMER CARBONATE 800 MG TABLET 1600 MG PO ×3 (08:39→17:08)
[2023-02-11] MEDS: B COMPLEX/FOLIC ACID SOFTGEL CAPSULE 1 CAP PO (08:39)
[2023-02-11] MEDS: CARVEDILOL 12.5 MG TABLET PO ×2 (08:39→20:06)
[2023-02-11] MEDS: ATORVASTATIN CALCIUM 40 MG TABLET PO (08:39)
[2023-02-11] MEDS: AMLODIPINE BESYLATE 5 MG TABLET 10 MG PO (08:39)
[2023-02-11] MEDS: CALCIUM CARBONATE 500 MG (200MG ELEMENTAL) TAB CHEW PO ×3 (08:39→17:08)
--- NOTE | 2023-02-11 10:17 | SWNOTE1 ---
SW checked therapy notes and pt uses a wheelchair at home for transfers and pt voiced to Physical therapy he has no needs.
[2023-02-11 10:59] LABS: Glucometer 218 mg/dL (74-106)
--- NOTE | 2023-02-11 11:16 | PM.HP ---
H&P: HPI History of Present Illness Chief complaint: Wound dehiscence Narrative: 42 y/o male to ER with wound dehiscence. OR 01/13 for diabetic foot ulcer and osteomyelitis. Patient noticed bleeding of foot and appears wound has opened. Seen by podiatry and directed to ER. Patient on peritoneal dialysis for ESRD and labs stable. No evidence of infection and admitted. Podiatry consulted and plan wound vac. If doesn't close may need to take to OR. Review of Systems ROS Constitutional Denies: fever, chills or night sweats Cardiovascular Denies: chest pain or edema Respiratory Denies: shortness of breath, cough or wheezing Gastrointestinal Denies: abdominal pain, nausea, vomiting or diarrhea Genitourinary Denies: painful urination PFSH [facility] Medical History (Updated 02/11/23 @ 09:36 by Souleymane Vidal MD) Ankle pain ?M25.579 - Pain in unspecified ankle and joints of unspecified foot (ICD-10) Anxiety ?F41.9 - Anxiety disorder, unspecified (ICD-10) Asthma ?J45.909 - Unspecified asthma, uncomplicated (ICD-10) Depression ?F32.A - Depression, unspecified (ICD-10) Diabetes ?E11.9 - Type 2 diabetes mellitus without complications (ICD-10) Encounter for post surgical wound check ?Z48.89 - Encounter for other specified surgical aftercare (ICD-10) Gangrene ?I96 - Gangrene, not elsewhere classified (ICD-10) Headache ?R51.9 - Headache, unspecified (ICD-10) High cholesterol ?E78.00 - Pure hypercholesterolemia, unspecified (ICD-10) Infection of great toe ?L08.9 - Local infection of the skin and subcutaneous tissue, unspecified (ICD-10) Migraine ?G43.909 - Migraine, unspecified, not intractable, without status migrainosus (ICD-10) 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 - Moderate intellectual disabilities (ICD-10) Osteomyelitis ?M86.9 - Osteomyelitis, unspecified (ICD-10) Panic attack ?F41.0 - Panic disorder [episodic paroxysmal anxiety] (ICD-10) Peritoneal dialysis catheter in place ?Z99.2 - Dependence on renal dialysis (ICD-10) Seasonal allergies ?J30.2 - Other seasonal allergic rhinitis (ICD-10) Stage 3 chronic kidney disease ?N18.30 - Chronic kidney disease, stage 3 unspecified (ICD-10) Wound infection (01/01/15) ?T14.8XXA - Other injury of unspecified body region, initial encounter (ICD-10) ?L08.9 - Local infection of the skin and subcutaneous tissue, unspecified (ICD-10) Surgical History (Updated 01/02/23 @ 10:08 by Naila Maharaj NP) H/O foot surgery (10/09/20) ?Z98.890 - Other specified postprocedural states (ICD-10) H/O foot surgery (11/10/18) ?Z98.890 - Other specified postprocedural states (ICD-10) H/O foot surgery (07/16/18) ?Z98.890 - Other specified postprocedural states (ICD-10) History of hernia repair (~1982) ?Z98.890 - Other specified postprocedural states (ICD-10) ?Z87.19 - Personal history of other diseases of the digestive system (ICD-10) S/P foot surgery, left (02/10/18) ?Z98.890 - Other specified postprocedural states (ICD-10) Status post left foot surgery (~2015) ?Z98.890 - Other specified postprocedural states (ICD-10) Status post right foot surgery (05/04/18) ?Z98.890 - Other specified postprocedural states (ICD-10) Status post right foot surgery (05/01/18) ?Z98.890 - Other specified postprocedural states (ICD-10) Family History (Updated 02/10/23 @ 14:28 by Caty Bazan) Father Family history of cancer Family history of myocardial infarction CAD (coronary artery disease) Family history of diabetes mellitus Grandfather Family history of myocardial infarction Social History (Updated 02/10/23 @ 14:32 by Caty Bazan) Within the past year, how often did you have a drink containing alcohol: never Within the past year, how many standard drinks containing alcohol did you have on a typical day: 1 or 2 Within the past year, how often did you have six or more drinks on one occasion: never Total score: 0 Score interpretation: A score less than 4 is consistent with normal alcohol consumption. Smoking status: Current every day smoker Nicotine containing products detail: 1/2 pack daily Non-prescribed substance use: denies use Previous occupational history: disability Known occupational exposures/hazards: No Highest level of school completed/degree received: high school graduate Are you now , , , , never or living with a partner: never In a typical week, how many times do you talk on the telephone with family, friends, or neighbors: twice per week How often do you get together with friends or relatives: never How often do you attend nondenominational or confucianism services: never Do you belong to any clubs or organizations such as nondenominational groups unions, Certain or athletic groups, or school groups: no Total score: 0 Score interpretation: A score of less than or equal to 1 indicates the most socially isolated. Little interest or pleasure in doing things: not at all Feeling down, depressed, or hopeless: not at all Feel stressed/tense/nervous/anxious/difficulty sleeping: not at all Do you think of yourself as: decline to answer Gender Identity: male Meds Home Medications and Allergies Home Medications Medication Instructions Recorded Confirmed Type atorvastatin 40 mg tablet 40 mg PO DAILY 01/03/23 02/10/23 History amlodipine 10 mg tablet 10 mg PO DAILY 01/09/23 02/10/23 History calcium carbonate 200 mg calcium 200 mg PO TID 01/09/23 02/10/23 History (500 mg) chewable tablet (Tums) carvedilol 12.5 mg tablet 12.5 mg PO BID 01/09/23 02/10/23 History insulin glargine 100 unit/mL (3 24 unit subcut BEDTIME 01/09/23 02/10/23 History mL) subcutaneous pen (Lantus Solostar U-100 Insulin) losartan 50 mg tablet 50 mg PO BEDTIME 01/09/23 02/10/23 History calcitriol 0.25 mcg capsule 0.25 mcg PO Q12H 01/13/23 02/10/23 History aspirin 81 mg tablet,delayed 81 mg PO DAILY 02/10/23 02/10/23 History release furosemide 40 mg tablet 40 mg PO BID 02/10/23 02/10/23 History insulin lispro 100 unit/mL 8 unit subcut AC 02/10/23 02/10/23 History subcutaneous pen sevelamer carbonate 800 mg tablet 1,600 mg PO TID 02/10/23 02/10/23 History (Renvela) vitamin B complex and vitamin C 1 cap PO DAILY 02/10/23 02/10/23 History no.20-folic acid 1 mg capsule Allergies Allergy/AdvReac Type Severity Reaction Status Date / Time trimethoprim [From Bactrim] Allergy Unknown Diarrhea Verified 01/13/23 06:44 amoxicillin Allergy Hives Verified 01/02/23 10:09 duloxetine Allergy Panic Verified 01/02/23 10:09 attack sulfamethoxazole Allergy Diarrhea Verified 01/02/23 10:09 [From Bactrim] Exam Constitutional Vital Signs, click to edit/add: Last Vital Signs Temp 98.2 F 02/11/23 05:26 Pulse 73 02/11/23 05:26 Resp 18 02/11/23 05:26 BP 149/88 H 02/11/23 08:39 Pulse Ox 90 L 02/11/23 05:26 O2 Del Method Room Air 02/11/23 05:26 Documenting provider has reviewed patient's vital signs: yes Common normals: no apparent distress and oriented x3 HENMT Common normals: normocephalic Eye Common normals: PERRL and EOMs intact bilaterally Respiratory Common normals: normal respiratory effort and clear to auscultation bilaterally Cardio Common normals: regular rate, regular rhythm, no gallops, no murmurs and no rub GI Common normals: Normal to inspection, nondistended, normoactive bowel sounds present and non-tender Extremity Common normals: no pedal edema Results Labs Labs: Short CBC 02/10/23 02/11/23 Range/Units 12:30 04:28 WBC 10.9 8.5 (4.0-11.0) 10^3/uL Hgb 9.4 L 8.2 L (14.0-18.0) g/dL Hct 27.5 L 24.9 L (42.0-54.0) % Plt Count 219 192 (150-450) 10^3/uL BMP 02/10/23 02/11/23 12:30 04:28 Sodium 137 137 Potassium 4.1 3.8 Chloride 103 103 Carbon Dioxide 26.9 26.8 BUN 66.0 H 67.0 H Creatinine 7.69 H* 8.11 H* Glucose 102 131 H Calcium 8.6 8.1 L Liver Function 02/10/23 Range/Units 12:30 Total Bilirubin 0.2 (0.2-1.0) mg/dL AST 11 L (15-37) U/L ALT 20 (16-63) U/L Alkaline Phosphatase 90 (46-116) U/L Albumin 3.0 L (3.4-5.0) g/dL ABG ABG results: 02/10/23 12:30 VBG pH 7.356 VBG pCO2 44.8 Assessment and Plan Assessment and Plan (1) Surgical wound dehiscence: (2) Diabetic foot ulcer: (3) Type 2 diabetes mellitus with hyperglycemia: (4) Hypertension: (5) Type 2 diabetes mellitus with diabetic polyneuropathy: (6) Peritoneal dialysis status: (7) Chronic osteomyelitis involving left ankle and foot: (8) End-stage renal disease (ESRD): Plan Presented with wound dehiscence and podiatry consulted. Will place wound vac and may need to go to OR. Resume home medication. Monitor labs and vitals. Start PT. Will need 2-3 days in the hospital.
[2023-02-11] MEDS: INSULIN ASPART 300 UNIT/3 ML PEN SUBQ ×3 (12:14→20:07)
--- NOTE | 2023-02-11 12:29 | CM.NOTE ---
Rounds made with Dr. Vidal, awaiting podiatry to see pt for plan of care.
[2023-02-11 13:29] VITALS: BP 109/68; PULSE 82; RESP 20; TEMP 37
--- NOTE | 2023-02-11 14:11 | P.PODCN_ITS ---
[facility] - Podiatry Data of Consult Patient: known to practice within the last 3 years Consult date: 02/11/23 Requesting physician: Souleymane Vidal MD Primary care provider: Marnie Lopez Consult Narrative Reason for consult: left foot dehiscence s/p L TMA 01/13/2023 Narrative: Patient is a 42-year-old male admitted to [facility] podiatry appointment yesterday. Underwent left TMA DOS 01/13/2023. Had suffered from wound dehiscence in the postop period and been treating with local wound care. On Friday of this week he noticed a significant increased bloody drainage to his dressing and presented to the emergency room. There was no active bleeding noted and a new dressing was applied. He subsequently followed up with us in the wound center 1 day later, yesterday and there was again a significant amount of sanguinous drainage in the dressing. He was then subsequently referred to [facility] for admission and lab work work-up to rule out anemia as well as initiate wound VAC therapy versus potential wound revision. He was seen at bedside today resting comfortably. Denies any acute events overnight. Denies any pain in the left foot. States he has been compliant with nonweightbearing in splint appears CDI. Denied any other lower extremity complaints at time of visit. Denied any constitutional symptoms at time of visit. cc:: CC: Souleymane Vidal MD Review of Systems ROS Status of ROS 10 or more systems reviewed and unremarkable except as noted in history and below [facility] Medical History (Updated 02/11/23 @ 09:36 by Souleymane Vidal MD) Ankle pain ?M25.579 - Pain in unspecified ankle and joints of unspecified foot (ICD-10) Anxiety ?F41.9 - Anxiety disorder, unspecified (ICD-10) Asthma ?J45.909 - Unspecified asthma, uncomplicated (ICD-10) Depression ?F32.A - Depression, unspecified (ICD-10) Diabetes ?E11.9 - Type 2 diabetes mellitus without complications (ICD-10) Encounter for post surgical wound check ?Z48.89 - Encounter for other specified surgical aftercare (ICD-10) Gangrene ?I96 - Gangrene, not elsewhere classified (ICD-10) Headache ?R51.9 - Headache, unspecified (ICD-10) High cholesterol ?E78.00 - Pure hypercholesterolemia, unspecified (ICD-10) Infection of great toe ?L08.9 - Local infection of the skin and subcutaneous tissue, unspecified (ICD-10) Migraine ?G43.909 - Migraine, unspecified, not intractable, without status migrainosus (ICD-10) 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 - Moderate intellectual disabilities (ICD-10) Osteomyelitis ?M86.9 - Osteomyelitis, unspecified (ICD-10) Panic attack ?F41.0 - Panic disorder [episodic paroxysmal anxiety] (ICD-10) Peritoneal dialysis catheter in place ?Z99.2 - Dependence on renal dialysis (ICD-10) Seasonal allergies ?J30.2 - Other seasonal allergic rhinitis (ICD-10) Stage 3 chronic kidney disease ?N18.30 - Chronic kidney disease, stage 3 unspecified (ICD-10) Wound infection (01/01/15) ?T14.8XXA - Other injury of unspecified body region, initial encounter (ICD- 10) ?L08.9 - Local infection of the skin and subcutaneous tissue, unspecified (ICD-10) Surgical History (Updated 01/02/23 @ 10:08 by Naila Maharaj NP) H/O foot surgery (10/09/20) ?Z98.890 - Other specified postprocedural states (ICD-10) H/O foot surgery (11/10/18) ?Z98.890 - Other specified postprocedural states (ICD-10) H/O foot surgery (07/16/18) ?Z98.890 - Other specified postprocedural states (ICD-10) History of hernia repair (~1982) ?Z98.890 - Other specified postprocedural states (ICD-10) ?Z87.19 - Personal history of other diseases of the digestive system (ICD-10) S/P foot surgery, left (02/10/18) ?Z98.890 - Other specified postprocedural states (ICD-10) Status post left foot surgery (~2015) ?Z98.890 - Other specified postprocedural states (ICD-10) Status post right foot surgery (05/04/18) ?Z98.890 - Other specified postprocedural states (ICD-10) Status post right foot surgery (05/01/18) ?Z98.890 - Other specified postprocedural states (ICD-10) Family History (Updated 02/10/23 @ 14:28 by Caty Bazan) Father Family history of cancer Family history of myocardial infarction CAD (coronary artery disease) Family history of diabetes mellitus Grandfather Family history of myocardial infarction Social History (Updated 02/10/23 @ 14:32 by Caty Bazan) Within the past year, how often did you have a drink containing alcohol: never Within the past year, how many standard drinks containing alcohol did you have on a typical day: 1 or 2 Within the past year, how often did you have six or more drinks on one occasion: never Total score: 0 Score interpretation: A score less than 4 is consistent with normal alcohol consumption. Smoking status: Current every day smoker Nicotine containing products detail: 1/2 pack daily Non-prescribed substance use: denies use Previous occupational history: disability Known occupational exposures/hazards: No Highest level of school completed/degree received: high school graduate Are you now , , , , never or living with a partner: never In a typical week, how many times do you talk on the telephone with family, friends, or neighbors: twice per week How often do you get together with friends or relatives: never How often do you attend christian or shinto services: never Do you belong to any clubs or organizations such as christian groups unions, fraternal or athletic groups, or school groups: no Total score: 0 Score interpretation: A score of less than or equal to 1 indicates the most socially isolated. Little interest or pleasure in doing things: not at all Feeling down, depressed, or hopeless: not at all Feel stressed/tense/nervous/anxious/difficulty sleeping: not at all Do you think of yourself as: decline to answer Gender Identity: male Exam Narrative Exam Narrative: Vascular: DP PT pulses strongly palpable. CFT intact to TMA stump site. Skin temperature warm and symmetric without any focal increase. No erythema edema or ecchymosis. No lymphangitis. Neuro: Light touch and gross sensation diminished. Protective sensation is absent. Derm: Incisional dehiscence to left foot TMA site laterally and medially. There is central skin bridging to the incision. Lateral portion of incision full- thickness in nature with granular base and some dried hematoma with probing to periosteal layer. Medial portion of incision probes to subcutaneous layer with mixed fibrogranular base. No active drainage at time of dressing change. No purulence or malodor. No other signs of acute infection. MSK: Prior right foot TMA. Left foot TMA. Muscle strength deferred secondary to postop state. Active and passive range of motion of the subtalar and ankle joint is supple without pain or crepitus. Mild palpatory tenderness to the lateral portion of the incisional wound. Compartment soft compressible, no pain with calf or thigh compression. Constitutional Vital Signs, click to edit/add: Last Vital Signs Temp 98.6 F 02/11/23 13:29 Pulse 82 02/11/23 13:29 Resp 20 02/11/23 13:29 BP 109/68 02/11/23 13:29 Pulse Ox 90 L 02/11/23 05:26 O2 Del Method Room Air 02/11/23 13:29 O2 Flow Rate 97 02/11/23 13:29 Assessment and Plan Assessment and Plan (1) Surgical wound dehiscence: (2) Diabetic foot ulcer: (3) Type 2 diabetes mellitus with hyperglycemia: (4) Hypertension: (5) Type 2 diabetes mellitus with diabetic polyneuropathy: (6) Peritoneal dialysis status: (7) Chronic osteomyelitis involving left ankle and foot: (8) End-stage renal disease (ESRD): Plan Patient examined evaluated. All findings discussed with patient all questions a nswered to patient's satisfaction. Labs and imaging reviewed. H/H 8.2/24.9 no leukocytosis Left foot dressing changed today, wound does not appear acutely infected, however there is been minimal improvement over the past few weeks with regular dry sterile dressing changes and even increased bloody drainage over the past few days. Vera flow wound VAC dressing was applied today at 125 mmHg. Will need changed to 3 times per week. VAC dressing well-padded and reinforced with Placido wrap. If VAC fails overnight, may turn off VAC and saline wet-to-dry with 4 x 4 ABD and light compression. Will valuate the VAC site and tomorrow a.m. and if appears stable over the next 24 to 48 hours, may be able to avoid flap revision. Otherwise if there is excessive drainage or wound VAC failure then he will need to go to OR for excision of the wound and flap revision. He is doing his own peritoneal dialysis. Rest per primary. We will continue to monitor, please call with questions or concerns.
[2023-02-11 16:13] LABS: Glucometer 237 mg/dL (74-106)
[2023-02-11 19:54] VITALS: BP 135/68; PULSE 83; RESP 20; TEMP 36.7; O2SAT 95
[2023-02-11 20:03] LABS: Glucometer 276 mg/dL (74-106)
[2023-02-11] MEDS: LOSARTAN POTASSIUM 50 MG TABLET PO (20:06)
[2023-02-11] MEDS: INSULIN DETEMIR 300 UNIT/3 ML INSULN.PEN 24 UNIT SUBQ (21:08)
[2023-02-11 21:35] LABS: Glucometer 226 mg/dL (74-106)
[2023-02-12 04:12] VITALS: BP 126/79; PULSE 80; RESP 18; TEMP 36.8; O2SAT 98
[2023-02-12 05:33] LABS: Basophils Absolute Auto 0.1 10^3/uL (0.0-0.1); Basophils Percent Auto 0.9 % (0.2-2.0); Eosinophils Absolute Auto 0.3 10^3/uL (0.0-0.7); Eosinophils Percent Auto 3.8 % (0.9-7.0); Hematocrit 25.8 % (42.0-54.0); Hemoglobin 8.7 g/dL (14.0-18.0); Immature Granulocytes Abs Auto 0.02 10^3/uL (0.00-0.03); Immature Granulocytes Pct Auto 0.2 % (0.0-0.5); Lymphocytes Percent Auto 33.4 % (20.5-60.0); Mean Corpuscular HGB Conc 33.7 g/dL (29.9-35.2); Mean Corpuscular Volume 91.8 fL (80.0-94.0); Mean Platelet Volume 9.6 fL (9.5-13.5); Monocytes Absolute Auto 0.6 10^3/uL (0.3-0.8); Monocytes Percent Auto 7.1 % (1.7-12.0); Neutrophils Percent Auto 54.6 % (43.0-75.0); Platelet Count 209 10^3/uL (150-450); Red Blood Count 2.81 10^6/uL (4.70-6.10); Red Cell Distribution Width 12.5 % (11.0-15.0); White Blood Count 9.1 10^3/uL (4.0-11.0)
[2023-02-12 05:41] LABS: Anion Gap 13.6; Calcium 8.5 mg/dL (8.5-10.1); Carbon Dioxide 25.2 mmol/L (21.0-32.0); Chloride 100 mmol/L (98-107); Estimated GFR (African America 9 (>=60); Estimated GFR (Non-African Ame 8 (>=60); Glucose 132 mg/dL (74-106); Potassium 3.8 mmol/L (3.5-5.1); Sodium 135 mmol/L (136-145)
[2023-02-12 07:55] LABS: Glucometer 155 mg/dL (74-106)
[2023-02-12 08:00] VITALS: RESP 18
[2023-02-12 08:02] VITALS: BP 126/68
[2023-02-12] MEDS: AMLODIPINE BESYLATE 5 MG TABLET 10 MG PO (08:02)
[2023-02-12] MEDS: CALCIUM CARBONATE 500 MG (200MG ELEMENTAL) TAB CHEW PO ×3 (08:02→16:19)
[2023-02-12] MEDS: B COMPLEX/FOLIC ACID SOFTGEL CAPSULE 1 CAP PO (08:04)
[2023-02-12] MEDS: CARVEDILOL 12.5 MG TABLET PO ×2 (08:04→20:02)
[2023-02-12] MEDS: ATORVASTATIN CALCIUM 40 MG TABLET PO (08:04)
[2023-02-12] MEDS: ASPIRIN 81 MG TABLET.DR PO (08:04)
[2023-02-12] MEDS: SEVELAMER CARBONATE 800 MG TABLET 1600 MG PO ×3 (08:04→16:19)
[2023-02-12] MEDS: FUROSEMIDE 40 MG TABLET PO ×2 (08:04→20:02)
[2023-02-12 10:57] LABS: Glucometer 227 mg/dL (74-106)
--- NOTE | 2023-02-12 12:07 | PM.PN ---
Progress Note: Subjective Subjective Interval history: Patient feels well this am. Wound vac applied by podiatry. No pain in foot. C/o numbness and feels cold. Normal appetite and no emesis or diarrhea. No chest pain or palpitations. No SOB or cough. Afebrile. hgb stable. Exam Constitutional Vital Signs, click to edit/add: Last Vital Signs Temp 98.3 F 02/12/23 04:12 Pulse 80 02/12/23 04:12 Resp 18 02/12/23 08:00 BP 126/68 02/12/23 08:02 Pulse Ox 98 02/12/23 04:12 O2 Del Method Room Air 02/12/23 04:12 O2 Flow Rate 97 02/11/23 13:29 Documenting provider has reviewed patient's vital signs: yes Common normals: no apparent distress, oriented x3 and alert HENMT Common normals: normocephalic Eye Common normals: PERRL and EOMs intact bilaterally Respiratory Common normals: normal respiratory effort and clear to auscultation bilaterally Cardio Common normals: regular rate, regular rhythm, no gallops, no murmurs and no rub GI Common normals: Normal to inspection, nondistended, normoactive bowel sounds present and non-tender Extremity Common normals: no pedal edema Progress Note: Objective Labs Labs: Short CBC 02/12/23 Range/Units 04:37 WBC 9.1 (4.0-11.0) 10^3/uL Hgb 8.7 L (14.0-18.0) g/dL Hct 25.8 L (42.0-54.0) % Plt Count 209 (150-450) 10^3/uL BMP 02/12/23 04:37 Sodium 135 L Potassium 3.8 Chloride 100 Carbon Dioxide 25.2 BUN 72.0 H Creatinine 7.98 H* Glucose 132 H Calcium 8.5 Progress Note: A&P Assessment and Plan (1) Surgical wound dehiscence: (2) Diabetic foot ulcer: (3) Type 2 diabetes mellitus with hyperglycemia: (4) Hypertension: (5) Type 2 diabetes mellitus with diabetic polyneuropathy: (6) Peritoneal dialysis status: (7) Chronic osteomyelitis involving left ankle and foot: (8) End-stage renal disease (ESRD): Plan Patient stable and plan per podiatry. Wound vac applied and will be changed tomorrow. If healing possible discharge with wound vac. If not healing will need to go to surgery. Monitor labs and vitals.
--- NOTE | 2023-02-12 12:30 | CM.NOTE ---
Rounds made with Dr. Vidal, wound vac intact at this time. Outpatient wound vac has been ordered from [facility] (wound clinic). Awaiting podiatry recommendations for plan of care and discharge planning.
[2023-02-12 13:09] LABS: Procalcitonin 0.36 ng/mL (0.00-0.08)
[2023-02-12] MEDS: INSULIN ASPART 300 UNIT/3 ML PEN SUBQ ×3 (13:10→20:05)
[2023-02-12 14:00] VITALS: BP 95/55; PULSE 77; RESP 16; TEMP 36.7; O2SAT 93
--- NOTE | 2023-02-12 14:36 | SWNOTE1 ---
RENETTA had message from [facility] at wound center and they did order home wound vac for pt. Podiatry does recommend we set up home health as pt has issues making it to appointments at times. SW to speak with pt.
--- NOTE | 2023-02-12 15:18 | SWNOTE1 ---
SW spoke with pt and he was not aware that wound vac was ordered to be delivered to home. Pt voiced he thought wound vac was coming off tomorrow and then going to see if he needs surgery. Pt under impression he was going to be dc or Friday depending on what the wound looks like. SW let him know that [facility] at wound center had called and let SW know wound vac is ordered and will be delivered to home. SW let her know podiatry recommended he does HH so there are some issues with getting to wound center due to transport. Pt is open to HH and has had [facility] in past. SW to send referral. SW let him know it will depend on insurance.
[2023-02-12 16:18] LABS: Glucometer 211 mg/dL (74-106)
--- NOTE | 2023-02-12 16:24 | PM.PN ---
Progress Note: Subjective Subjective Interval history: Patient examined this a.m. resting at bedside comfortably. Denies any acute events overnight. Denies any pain in left foot. States he had not noticed any issues with the VAC overnight. Dressing remains intact. Denies any other lower extremity complaints. Denies any constitutional symptoms at time of visit. Exam Narrative Exam Narrative: Left foot wound VAC dressing left CDI. Outer myranda layer removed. Vascular: DP and PT pulses strongly palpable. No edema erythema or ecchymosis. No ascending lymphangitis. Neuro: Light touch gross sensation diminished. Protective sensation absent. Derm: VAC dressing and film left in place. No other ulcerations noted. MSK: Bilateral TMA. Ankle subtalar range of motion supple without pain or crepitus. No palpatory tenderness elicited upon exam. Compartment soft compressible, no pain with calf or thigh compression. Constitutional Vital Signs, click to edit/add: Last Vital Signs Temp 98.0 F 02/12/23 14:00 Pulse 77 02/12/23 14:00 Resp 16 02/12/23 14:00 BP 95/55 02/12/23 14:00 Pulse Ox 93 L 02/12/23 14:00 O2 Del Method Room Air 02/12/23 14:00 O2 Flow Rate 97 02/11/23 13:29 Progress Note: Objective Labs Labs: Short CBC 02/12/23 Range/Units 04:37 WBC 9.1 (4.0-11.0) 10^3/uL Hgb 8.7 L (14.0-18.0) g/dL Hct 25.8 L (42.0-54.0) % Plt Count 209 (150-450) 10^3/uL BMP 02/12/23 04:37 Sodium 135 L Potassium 3.8 Chloride 100 Carbon Dioxide 25.2 BUN 72.0 H Creatinine 7.98 H* Glucose 132 H Calcium 8.5 Progress Note: A&P Assessment and Plan (1) Surgical wound dehiscence: (2) Diabetic foot ulcer: (3) Type 2 diabetes mellitus with hyperglycemia: (4) Hypertension: (5) Type 2 diabetes mellitus with diabetic polyneuropathy: (6) Peritoneal dialysis status: (7) Chronic osteomyelitis involving left ankle and foot: (8) End-stage renal disease (ESRD): Plan Patient examined evaluated. All findings discussed with patient all questions answered to patient's satisfaction. Labs reviewed. Hemoglobin appears stable. VAC examined, dressing intact with minimal drainage in canister. Suction maintained. No signs of acute infection. We will continue with wound VAC therapy, orders for home VAC have been submitted. We will monitor his progress with wound VAC over the next 3 to 4 weeks and any further debridements or potential graft application can be performed in the outpatient setting. We will change VAC dressing in a.m. to home-going dry sterile dressing consisting of Betadine moistened gauze, dry sterile dressing and posterior splint. He will need this dressing changed 3 times per week until his home VAC has been delivered. At that point he will undergo 3 times per weekly vac changes, consisting of bordered foam, black foam, and continuous 125 mmHg negative pressure. Follow-up in 2 weeks after discharge. Call with questions or concerns.
--- NOTE | 2023-02-12 16:28 | SWNOTE1 ---
[facility] not able to accept insurance. RENETTA sent referral to [address]
[2023-02-12 19:37] VITALS: BP 136/72; PULSE 87; RESP 16; RESP 18; TEMP 36.8; O2SAT 94
[2023-02-12] MEDS: LOSARTAN POTASSIUM 50 MG TABLET PO (20:01)
[2023-02-12] MEDS: OXYCODONE HCL/ACETAMINOPHEN 5MG/325MG 1 TAB PO (20:01)
[2023-02-12 20:02] LABS: Glucometer 299 mg/dL (74-106)
[2023-02-12] MEDS: INSULIN DETEMIR 300 UNIT/3 ML INSULN.PEN 24 UNIT SUBQ (20:06)
[2023-02-12 21:09] LABS: Glucometer 293 mg/dL (74-106)
[2023-02-12 22:26] LABS: Glucometer 245 mg/dL (74-106)
[2023-02-12 23:07] LABS: Glucometer 237 mg/dL (74-106)
[2023-02-13 04:36] LABS: Glucometer 221 mg/dL (74-106)
[2023-02-13 05:26] VITALS: BP 133/70; PULSE 73; RESP 18; TEMP 36.6; O2SAT 96
[2023-02-13 06:29] LABS: Basophils Absolute Auto 0.1 10^3/uL (0.0-0.1); Basophils Percent Auto 0.7 % (0.2-2.0); Eosinophils Absolute Auto 0.3 10^3/uL (0.0-0.7); Eosinophils Percent Auto 3.4 % (0.9-7.0); Hemoglobin 7.9 g/dL (14.0-18.0); Immature Granulocytes Abs Auto 0.03 10^3/uL (0.00-0.03); Immature Granulocytes Pct Auto 0.4 % (0.0-0.5); Lymphocytes Absolute Auto 2.4 10^3/uL (1.2-3.8); Lymphocytes Percent Auto 29.6 % (20.5-60.0); Mean Corpuscular HGB Conc 34.6 g/dL (29.9-35.2); Mean Corpuscular Hemoglobin 31.5 pg (25.9-34.0); Mean Corpuscular Volume 90.8 fL (80.0-94.0); Mean Platelet Volume 8.7 fL (9.5-13.5); Monocytes Absolute Auto 0.5 10^3/uL (0.3-0.8); Monocytes Percent Auto 6.7 % (1.7-12.0); Neutrophils Absolute Auto 4.8 10^3/uL (1.4-6.5); Neutrophils Percent Auto 59.2 % (43.0-75.0); Platelet Count 175 10^3/uL (150-450); Red Blood Count 2.51 10^6/uL (4.70-6.10); Red Cell Distribution Width 12.6 % (11.0-15.0)
[2023-02-13 06:34] LABS: Hematocrit 22.8 % (42.0-54.0)
[2023-02-13 06:43] LABS: Anion Gap 15.3; BUN Creatinine Ratio 10.6; Calcium 8.2 mg/dL (8.5-10.1); Carbon Dioxide 24.5 mmol/L (21.0-32.0); Chloride 99 mmol/L (98-107); Estimated GFR (African America 10 (>=60); Estimated GFR (Non-African Ame 8 (>=60); Glucose 190 mg/dL (74-106); Potassium 3.8 mmol/L (3.5-5.1); Sodium 135 mmol/L (136-145)
[2023-02-13 07:25] LABS: Glucometer 217 mg/dL (74-106)
[2023-02-13] MEDS: SEVELAMER CARBONATE 800 MG TABLET 1600 MG PO ×2 (07:26→12:02)
[2023-02-13] MEDS: CALCIUM CARBONATE 500 MG (200MG ELEMENTAL) TAB CHEW PO ×2 (07:27→12:02)
[2023-02-13 08:00] VITALS: RESP 18
[2023-02-13 08:43] VITALS: BP 137/78
[2023-02-13] MEDS: AMLODIPINE BESYLATE 5 MG TABLET 10 MG PO (08:43)
[2023-02-13] MEDS: ASPIRIN 81 MG TABLET.DR PO (08:44)
[2023-02-13] MEDS: ATORVASTATIN CALCIUM 40 MG TABLET PO (08:44)
[2023-02-13] MEDS: FUROSEMIDE 40 MG TABLET PO (08:44)
[2023-02-13] MEDS: CARVEDILOL 12.5 MG TABLET PO (08:44)
[2023-02-13] MEDS: B COMPLEX/FOLIC ACID SOFTGEL CAPSULE 1 CAP PO (08:44)
[2023-02-13] MEDS: INSULIN ASPART 300 UNIT/3 ML PEN SUBQ ×2 (09:11→11:49)
--- NOTE | 2023-02-13 10:03 | SWNOTE1 ---
[facility] does not accept pt's insurance. SW to make phone calls to other companies.
--- NOTE | 2023-02-13 10:30 | SWNOTE1 ---
RENETTA called several other Home Health companies and several were not in network. [facility] does accept insurance and will review. SW sent referral
[2023-02-13 10:51] LABS: Basophils Absolute Auto 0.1 10^3/uL (0.0-0.1); Basophils Percent Auto 0.8 % (0.2-2.0); Eosinophils Absolute Auto 0.3 10^3/uL (0.0-0.7); Eosinophils Percent Auto 3.3 % (0.9-7.0); Immature Granulocytes Abs Auto 0.02 10^3/uL (0.00-0.03); Immature Granulocytes Pct Auto 0.3 % (0.0-0.5); Lymphocytes Absolute Auto 2.1 10^3/uL (1.2-3.8); Lymphocytes Percent Auto 26.5 % (20.5-60.0); Mean Corpuscular HGB Conc 34.6 g/dL (29.9-35.2); Mean Corpuscular Hemoglobin 31.3 pg (25.9-34.0); Mean Corpuscular Volume 90.2 fL (80.0-94.0); Mean Platelet Volume 9.3 fL (9.5-13.5); Monocytes Absolute Auto 0.6 10^3/uL (0.3-0.8); Monocytes Percent Auto 6.9 % (1.7-12.0); Neutrophils Absolute Auto 4.9 10^3/uL (1.4-6.5); Neutrophils Percent Auto 62.2 % (43.0-75.0); Platelet Count 172 10^3/uL (150-450); Red Blood Count 2.56 10^6/uL (4.70-6.10); Red Cell Distribution Width 12.7 % (11.0-15.0); White Blood Count 7.9 10^3/uL (4.0-11.0)
[2023-02-13 11:14] LABS: Hematocrit 23.1 % (42.0-54.0)
--- NOTE | 2023-02-13 11:31 | CM.NOTE ---
Rounds made with Dr. Vidal. Plan for discharge is today. Mr. Alejandra and Mother (on phone) agreeable to home. Dr. Vidal would like to re-check H/H before discharge to home-Mr. Alejandra verbalizes understanding. [facility] will verify Home Health accepting once known. Verbalizes understanding.
--- NOTE | 2023-02-13 11:46 | P.PN_ITS ---
Progress Note: Subjective Subjective Interval history: Patient examined this a.m. resting at bedside comfortably. Last night Vac alarm was sounding and nursing was unable to troubleshoot so saline wet to dry dressing was placed during caustic cresylate shift superintendent. Denies any other acute events overnight. Denies any pain in left foot. Dressing remains intact. Denies any other lower extremity complaints. Denies any constitutional symptoms at time of visit. Exam Narrative Exam Narrative: Vascular: DP PT pulses strongly palpable. CFT intact to TMA stump site. Skin temperature warm and symmetric without any focal increase. No erythema edema or ecchymosis. No lymphangitis. Neuro: Light touch and gross sensation diminished. Protective sensation is absent. Derm: Incisional dehiscence to left foot TMA site laterally and medially. There is central skin bridging to the incision. Lateral portion of incision full- thickness in nature with increased granular base and probing improved to deep fascia. (-) probe to bone. Medial portion of incision probes to subcutaneous layer with mixed fibrogranular base. No active drainage at time of dressing change. No purulence or malodor. No other signs of acute infection. MSK: Prior right foot TMA. Left foot TMA. Muscle strength deferred secondary to postop state. Active and passive range of motion of the subtalar and ankle joint is supple without pain or crepitus. Mild palpatory tenderness to the lateral portion of the incisional wound. Compartment soft compressible, no pain with calf or thigh compression. Constitutional Vital Signs, click to edit/add: Last Vital Signs Temp 97.9 F 02/13/23 05:26 Pulse 73 02/13/23 05:26 Resp 18 02/13/23 08:00 BP 137/78 02/13/23 08:43 Pulse Ox 96 02/13/23 05:26 O2 Del Method Room Air 02/13/23 05:26 O2 Flow Rate 97 02/11/23 13:29 Progress Note: Objective Labs Labs: Short CBC 02/13/23 02/13/23 Range/Units 06:20 10:40 WBC 8.0 7.9 (4.0-11.0) 10^3/uL Hgb 7.9 L 8.0 L (14.0-18.0) g/dL Hct 22.8 L* 23.1 L* (42.0-54.0) % Plt Count 175 172 (150-450) 10^3/uL BMP 02/13/23 06:20 Sodium 135 L Potassium 3.8 Chloride 99 Carbon Dioxide 24.5 BUN 77.0 H* Creatinine 7.24 H* Glucose 190 H Calcium 8.2 L Progress Note: A&P Assessment and Plan (1) Surgical wound dehiscence: (2) Diabetic foot ulcer: (3) Type 2 diabetes mellitus with hyperglycemia: (4) Hypertension: (5) Type 2 diabetes mellitus with diabetic polyneuropathy: (6) Peritoneal dialysis status: (7) Chronic osteomyelitis involving left ankle and foot: (8) End-stage renal disease (ESRD): Plan Patient examined evaluated. All findings discussed with patient all questions answered to patient's satisfaction. Labs reviewed. Hemoglobin appears stable after recheck today. Wound appears greatly improved with minimal dime-sized sanguineous drainage to dressing, increased granulation tissue and less depth. No signs of acute infection. Appears vac canister may have been full from saline flush leading to alarm Saline moistened gauze to wound bed, dry sterile 4x4, ABD, loose kerlix and well padded posterior splint applied to LLE. Leave dressing CDI until [facility] visit Friday. Patient states vac supposed to be delivered to his home today. We will continue with wound VAC therapy, orders for home VAC have been submitted/approved, in process of delivery. We will monitor his progress with wound VAC over the next 3 to 4 weeks and any further debridements or potential graft application can be performed in the outpatient setting. He will need home Vac dressing changed 3 times per week consisting of bordered film, black foam, and continuous 125 mmHg negative pressure. Follow-up at wound center in 2 weeks after discharge. Call with questions or concerns.
[2023-02-13 11:50] LABS: Glucometer 206 mg/dL (74-106)
--- NOTE | 2023-02-13 12:13 | P.DS_ITS ---
DS: Providers Provider Date of admission: 02/10/23 13:46 Primary care physician: Marnie Lopez Consults: 02/10/23 16:54 Consult to Podiatry Routine Consulting Provider: Julio C Patel Reason for consultation: leg wound Physical Therapy Eval and Treat Routine Reason for consultation: Foot wound DS: Diagnosis Discharge Diagnosis (1) Surgical wound dehiscence: (2) Diabetic foot ulcer: (3) Type 2 diabetes mellitus with hyperglycemia: (4) Hypertension: (5) Type 2 diabetes mellitus with diabetic polyneuropathy: (6) Peritoneal dialysis status: (7) Chronic osteomyelitis involving left ankle and foot: (8) End-stage renal disease (ESRD): DS: Summary Hospital Course Hospital Course: Reason for admission: See H&P for details. 42 y/o male to ER with wound dehiscence. OR 01/13 for diabetic foot ulcer and osteomyelitis. Patient noticed bleeding of foot and appears wound has opened. Seen by podiatry and directed to ER. Patient on peritoneal dialysis for ESRD and labs stable. No evidence of infection and admitted. Hospital course: Podiatry consulted and placed wound vac. Resumed home medication. Remained stable. Afebrile and hgb stable. Increased drainage from wound vac then stopped draining. Removed wound vac and no active bleeding. Hgb decreased then stabilized. Podiatry stated not surgical and planned on wound vac. Arranged for wound vac to be delivered to patient's home. guest services coordinator arranged for home health. Discharged home in stable condition. Home health will place wound vac. F/u with podiatry in 1-2 weeks. Resume home medication as directed. Time Spent with Patient Time attestation: Total time spent providing and/or coordinating discharge services: Exam Constitutional Vital Signs, click to edit/add: Last Vital Signs Temp 97.9 F 02/13/23 05:26 Pulse 73 02/13/23 05:26 Resp 18 02/13/23 08:00 BP 137/78 02/13/23 08:43 Pulse Ox 96 02/13/23 05:26 O2 Del Method Room Air 02/13/23 05:26 O2 Flow Rate 97 02/11/23 13:29 Documenting provider has reviewed patient's vital signs: yes Common normals: no apparent distress, oriented x3 and alert HENMT Common normals: normocephalic Eye Common normals: PERRL and EOMs intact bilaterally Respiratory Common normals: normal respiratory effort and clear to auscultation bilaterally Cardio Common normals: regular rate, regular rhythm, no gallops, no murmurs and no rub GI Common normals: Normal to inspection, nondistended, normoactive bowel sounds present and non-tender Extremity Common normals: no pedal edema DS: Data Data Completed and Pending Labs on day of discharge: Labs from last 24 hours 02/13/23 02/13/23 02/13/23 11:48 10:40 07:24 WBC 7.9 RBC 2.56 L Hgb 8.0 L Hct 23.1 L* MCV 90.2 MCH 31.3 MCHC 34.6 RDW 12.7 Plt Count 172 MPV 9.3 L Neut % (Auto) 62.2 Lymph % (Auto) 26.5 [place] % (Auto) 6.9 Eos % (Auto) 3.3 Baso % (Auto) 0.8 Neut # (Auto) 4.9 Lymph # (Auto) 2.1 [place] # (Auto) 0.6 Eos # (Auto) 0.3 Baso # (Auto) 0.1 Abs Immat Gran (auto) 0.02 Imm/Tot Granulo (auto) 0.3 Sodium Potassium Chloride Carbon Dioxide Anion Gap BUN Creatinine Est GFR ( Amer) Est GFR (Non-Af Amer) BUN/Creatinine Ratio Glucose Calcium Procalcitonin POC Glucose 206 H 217 H 02/13/23 02/13/23 02/12/23 06:20 04:34 23:06 WBC 8.0 RBC 2.51 L Hgb 7.9 L Hct 22.8 L* MCV 90.8 MCH 31.5 MCHC 34.6 RDW 12.6 Plt Count 175 MPV 8.7 L Neut % (Auto) 59.2 Lymph % (Auto) 29.6 [place] % (Auto) 6.7 Eos % (Auto) 3.4 Baso % (Auto) 0.7 Neut # (Auto) 4.8 Lymph # (Auto) 2.4 [place] # (Auto) 0.5 Eos # (Auto) 0.3 Baso # (Auto) 0.1 Abs Immat Gran (auto) 0.03 Imm/Tot Granulo (auto) 0.4 Sodium 135 L Potassium 3.8 Chloride 99 Carbon Dioxide 24.5 Anion Gap 15.3 BUN 77.0 H* Creatinine 7.24 H* Est GFR ( Amer) 10 L Est GFR (Non-Af Amer) 8 L BUN/Creatinine Ratio 10.6 Glucose 190 H Calcium 8.2 L Procalcitonin POC Glucose 221 H 237 H 02/12/23 02/12/23 02/12/23 22:25 21:07 20:01 WBC RBC Hgb Hct MCV MCH MCHC RDW Plt Count MPV Neut % (Auto) Lymph % (Auto) [place] % (Auto) Eos % (Auto) Baso % (Auto) Neut # (Auto) Lymph # (Auto) [place] # (Auto) Eos # (Auto) Baso # (Auto) Abs Immat Gran (auto) Imm/Tot Granulo (auto) Sodium Potassium Chloride Carbon Dioxide Anion Gap BUN Creatinine Est GFR ( Amer) Est GFR (Non-Af Amer) BUN/Creatinine Ratio Glucose Calcium Procalcitonin POC Glucose 245 H 293 H 299 H 02/12/23 02/10/23 16:17 12:30 WBC RBC Hgb Hct MCV MCH MCHC RDW Plt Count MPV Neut % (Auto) Lymph % (Auto) [place] % (Auto) Eos % (Auto) Baso % (Auto) Neut # (Auto) Lymph # (Auto) [place] # (Auto) Eos # (Auto) Baso # (Auto) Abs Immat Gran (auto) Imm/Tot Granulo (auto) Sodium Potassium Chloride Carbon Dioxide Anion Gap BUN Creatinine Est GFR ( Amer) Est GFR (Non-Af Amer) BUN/Creatinine Ratio Glucose Calcium Procalcitonin 0.36 H POC Glucose 211 H Preliminary micro results at discharge 02/10/23 13:18 Blood Culture Result 1 - Preliminary Blood NO GROWTH AT 36-48 HOURS. FINAL TO FOLLOW. 02/10/23 13:09 Blood Culture Result 1 - Preliminary Blood NO GROWTH AT 36-48 HOURS. FINAL TO FOLLOW. Discharge Plan Discharge Condition: Fair Discharge Medications: Continued atorvastatin 40 mg tablet 40 mg PO DAILY calcitriol 0.25 mcg capsule 0.25 mcg PO Q12H furosemide 40 mg tablet 40 mg PO BID insulin lispro 100 unit/mL insulin pen 8 unit SUBCUT AC aspirin 81 mg tablet,delayed release (DR/EC) 81 mg PO DAILY sevelamer carbonate [Renvela] 800 mg tablet 1,600 mg PO TID Rx Instructions: must administer with a meal/food B complex with C 20-folic acid 1 mg capsule 1 cap PO DAILY losartan 50 mg tablet 50 mg PO BEDTIME carvedilol 12.5 mg tablet 12.5 mg PO BID Rx Instructions: must administer with a meal/food amlodipine 10 mg tablet 10 mg PO DAILY calcium carbonate [Tums] 200 mg calcium (500 mg) tablet,chewable 200 mg PO TID insulin glargine [Lantus Solostar U-100 Insulin] 100 unit/mL (3 mL) insulin pen 24 unit subcut BEDTIME Activity: resume usual activities as tolerated Diet: advance to your usual diet Customer Pricing Manager/Clinical Staff Anesthesiologist Instructions: Discharge with [facility], phone number is [phone]. They will be out to change dressing on Friday02/17/23. IF wound vac arrives prior to that, call the home health company to notify. Forms: Portal Instructions
--- NOTE | 2023-02-13 13:44 | SWNOTE1 ---
Pt is all set with [facility], they will be out Friday02/17/23 unless wound vac arrives prior to then. SW let pt know. Discharge orders are sent.
--- NOTE | 2023-02-17 14:05 | CM.DCFOLLOWU ---
First attempt at discharge follow up call, no answer.
--- NOTE | 2023-02-18 15:36 | CM.DCFOLLOWU ---
Person spoke with: Pt's mother How are you feeling? He is doing well How is your pain? Tolerable Did you understand your discharge instructions? Yes Do you have any questions about your discharge instructions? F/U appt with Dr. Vidal's office- they told pt he was not scheduled until . Were you given any prescriptions at discharge? No Were you able to get your prescriptions filled? N/A Do you understand how to take your medications as ordered? Yes Do you have any questions about your follow up appointment and do you plan to keep your follow up appointment? Appt for Dr. Vidal got rescheduled for March and yes pt will go Is there anything else that you would like to discuss? No Questions/Comments/Concerns/Other:
== END 2023-02-13 14:37 | disposition home health service (06) ==
LOC: ER 13:52 → MS 02-11 07:46
PROVIDERS: Admitting Provider Family Medicine; Emergency Provider Emergency Medicine; PCP Nurse Practitioner; Visit Provider Family Medicine
DX: T81.32XA Disruption of internal operation (surgical) wound, not elsewhere classified, initial encounter (principal); E11.65 Type 2 diabetes mellitus with hyperglycemia; E11.42 Type 2 diabetes mellitus with diabetic polyneuropathy; E11.69 Type 2 diabetes mellitus with other specified complication; M86.672 Other chronic osteomyelitis, left ankle and foot; E11.621 Type 2 diabetes mellitus with foot ulcer; L97.529 Non-pressure chronic ulcer of other part of left foot with unspecified severity; E11.22 Type 2 diabetes mellitus with diabetic chronic kidney disease; I12.0 Hypertensive chronic kidney disease with stage 5 chronic kidney disease or end stage renal disease; N18.6 End stage renal disease; Z98.890 Other specified postprocedural states; Z99.2 Dependence on renal dialysis; F41.9 Anxiety disorder, unspecified; J45.909 Unspecified asthma, uncomplicated; F32.A Depression, unspecified; E78.00 Pure hypercholesterolemia, unspecified; F71 Moderate intellectual disabilities; F41.0 Panic disorder [episodic paroxysmal anxiety]; F17.210 Nicotine dependence, cigarettes, uncomplicated; Z79.82 Long term (current) use of aspirin; Z79.899 Other long term (current) drug therapy; Z79.4 Long term (current) use of insulin
CPT/HCPCS: 36415; 71045; 80048; 80053; 82800; 82948; 83605; 83735; 84145; 85025; 85610; 85730; 87040; 87070; 93005; 99285; A9272; G0378

== ENCOUNTER 2023-02-10 15:27 | Outpatient (OUT) | payer OTHER, SELFPAY | END 2023-02-10 15:28 | disposition home or self-care (01) | LOC: WC 15:27 | PROVIDERS: PCP Nurse Practitioner; Visit Provider Physician Assistant | DX: T87.89 Other complications of amputation stump (principal) | CPT/HCPCS: G0463 ==

== ENCOUNTER 2023-02-26 14:51 | Outpatient (OUT) | payer OTHER, SELFPAY | END 2023-02-26 14:52 | disposition home or self-care (01) | LOC: WC 14:51 | PROVIDERS: PCP Nurse Practitioner; Visit Provider Podiatrist Foot & Ankle Surgery | DX: T87.89 Other complications of amputation stump (principal) | CPT/HCPCS: 97605 ==

== ENCOUNTER 2023-03-11 14:55 | Outpatient (OUT) | payer OTHER, SELFPAY | END 2023-03-11 14:56 | disposition home or self-care (01) | LOC: WC 14:55 | PROVIDERS: PCP Nurse Practitioner; Visit Provider Podiatrist Foot & Ankle Surgery | DX: T87.89 Other complications of amputation stump (principal) | CPT/HCPCS: 11042; A6199 ==

== ENCOUNTER 2023-04-07 15:02 | Outpatient (OUT) | payer OTHER, SELFPAY | END 2023-04-07 15:03 | disposition home or self-care (01) | LOC: WC 15:03 | PROVIDERS: PCP Nurse Practitioner; Visit Provider Podiatrist Foot & Ankle Surgery | DX: E10.621 Type 1 diabetes mellitus with foot ulcer (principal); E10.65 Type 1 diabetes mellitus with hyperglycemia; S90.425A Blister (nonthermal), left lesser toe(s), initial encounter; M86.472 Chronic osteomyelitis with draining sinus, left ankle and foot; S90.415A Abrasion, left lesser toe(s), initial encounter; R26.2 Difficulty in walking, not elsewhere classified; E78.5 Hyperlipidemia, unspecified; I10 Essential (primary) hypertension; E10.40 Type 1 diabetes mellitus with diabetic neuropathy, unspecified | CPT/HCPCS: G0463 ==